=== PATIENT | male | born 1960 | race Caucasian/White ===

== ENCOUNTER 2016-05-20 01:29 | Emergency (ER) | payer OTHER ==
[2016-05-20] MEDS ORDERED: HYDROCODONE/ACETAMINOPHEN 5-325 MG 6 TAB/DSPK PO PRN (04:20)
[2016-05-20] MEDS ORDERED: SILVER SULFADIAZINE 1% CREAM 400 GM TP PRN (04:20)
--- NOTE | 2016-05-20 04:20 | ER Document Report ---
ED Skin Rash/Insect Bite/Abscs - General Chief Complaint: Abscess Stated Complaint: POSSIBLE ABSCESS LEFT FOOT Mode of Arrival: Ambulatory Information source: Patient Notes: Patient is a 55-year-old male who presents to the ER today for callus/ ulcer to his left foot. Patient states he walks all the time as [place] is [place] and that it has been ongoing for years but worsened over the past 2 weeks. He states that he's been putting Neosporin ointment on it which is not helping. He denies any history of diabetes, cellulitis, fever, chills. TRAVEL OUTSIDE OF THE [place] IN LAST 30 DAYS: No - Related Data Allergies/Adverse Reactions: amphetamine [From Adderall] Allergy (Verified 12/01/15 21:04) buprenorphine [From Suboxone] Allergy (Verified 12/01/15 21:04) dextroamphetamine [From Adderall] Allergy (Verified 12/01/15 21:04) naloxone [From Suboxone] Allergy (Verified 12/01/15 21:04) Past Medical History - General Information source: Patient - Social History Smoking Status: Current Every Day Smoker Chew tobacco use (# tins/day): No Frequency of alcohol use: None Drug Abuse: None Family History: DM, Hypertension Patient has suicidal ideation: No Patient has homicidal ideation: No - Past Medical History Cardiac Medical History: Reports: Hx Hypertension Denies: Hx Coronary Artery Disease, Hx Heart Attack Pulmonary Medical History: Denies: Hx Asthma, Hx Bronchitis, Hx COPD, Hx Pneumonia, Hx Tuberculosis Neurological Medical History: Reports: Hx Cerebrovascular Accident. Denies: Hx Seizures Endocrine Medical History: Reports: Hx Diabetes Mellitus Type 2 - borderline Renal/ Medical History: Denies: Hx Peritoneal Dialysis GI Medical History: Reports: Hx Hepatitis - hep C Musculoskeltal Medical History: Denies Hx Arthritis Traumatic Medical History: Reports: Hx Fractures - ribs, right clavicle Infectious Medical History: Reports: Hx Hepatitis - hep C Past Surgical History: Reports: Hx Orthopedic Surgery - lumbar backx2, right clavicle - Immunizations Hx Diphtheria, Pertussis, Tetanus Vaccination: No - unk Review of Systems - Review of Systems Constitutional: No symptoms reported EENT: No symptoms reported Cardiovascular: No symptoms reported Respiratory: No symptoms reported Gastrointestinal: No symptoms reported Genitourinary: No symptoms reported Male Genitourinary: No symptoms reported Musculoskeletal: No symptoms reported Skin: See HPI Hematologic/Lymphatic: No symptoms reported Neurological/Psychological: No symptoms reported Physical Exam - Notes Notes: PHYSICAL EXAMINATION: GENERAL: Well-appearing and in no acute distress. HEAD: Atraumatic, normocephalic. EYES: Pupils equal round and reactive to light, extraocular movements intact, sclera anicteric, conjunctiva are normal. NECK: Normal range of motion, supple without lymphadenopathy LUNGS: CTAB and equal. No wheezes rales or rhonchi. HEART: Regular rate and rhythm without murmurs EXTREMITIES: Normal range of motion, no pitting edema. No cyanosis. NEUROLOGICAL: Cranial nerves grossly intact. Normal sensory/motor exams. PSYCH: Normal mood, normal affect. SKIN: Warm, Dry, normal turgor, 1 cm in diameter callus with dried blood to the plantar surface of the left foot, tender to palpation, no purulence, fluctuance. Course - Re-evaluation Re-evalutation: 05/20/16 04:19 Patient is a nondiabetic with a bleeding callus. I did advise patient to soak in hot Epsom salt water and use a pumice stone for callus, but will send him home with some prescription ointment from here to also help. Discharge - Discharge Clinical Impression: Callus of foot Condition: Stable Disposition: HOME, SELF-CARE Additional Instructions: Return immediately for any new or worsening symptoms. Follow up with primary care provider, call tomorrow to make followup appointment. Forms: Return to Work
== END 2016-05-20 04:59 | disposition home or self-care (01) ==
LOC: ER 01:29
DX: L84 Corns and callosities (principal); L02.612 Cutaneous abscess of left foot; F17.210 Nicotine dependence, cigarettes, uncomplicated
CPT/HCPCS: 99282; J3490

== ENCOUNTER 2017-01-10 21:18 | Emergency (ER) | payer SELFPAY ==
--- NOTE | 2017-01-11 01:21 | ER Document Report ---
ED Skin Rash/Insect Bite/Abscs - General Chief Complaint: Skin Problem Stated Complaint: SKIN PROBLEM AND POSSIBLE DOG BITE Time Seen by Provider: 01/11/17 01:10 Notes: Patient is a 56-year-old male that comes emergency department with multiple skin problems. He states he has an itchy rash over his arms which has been worsening for several days, he was also bitten by a dog on his right forearm 3 days ago, he states it was a pit bull, it was his neighbors, he states that the dog is vaccinated. He states he thinks the wound is doing well. He also has a foot ulcer on his left plantar surface under the great toe, states that his foot has gotten hot and more painful. He denies fevers or chills, denies vomiting. He denies history of diabetes. He states his tetanus is up-to-date within 5 years. Past medical history of hepatitis C, TIA. He takes no daily medications, does not have primary care. TRAVEL OUTSIDE OF THE [place] IN LAST 30 DAYS: No - Related Data Allergies/Adverse Reactions: amphetamine [From Adderall] Allergy (Verified 12/01/15 21:04) buprenorphine [From Suboxone] Allergy (Verified 12/01/15 21:04) dextroamphetamine [From Adderall] Allergy (Verified 12/01/15 21:04) naloxone [From Suboxone] Allergy (Verified 12/01/15 21:04) Past Medical History - General Information source: Patient - Social History Smoking Status: Former Smoker Drug Abuse: None Lives with: Alone Family History: DM, Hypertension Patient has suicidal ideation: No Patient has homicidal ideation: No - Past Medical History Cardiac Medical History: Reports: Hx Hypertension Denies: Hx Coronary Artery Disease, Hx Heart Attack Pulmonary Medical History: Denies: Hx Asthma, Hx Bronchitis, Hx COPD, Hx Pneumonia, Hx Tuberculosis Neurological Medical History: Reports: Hx Cerebrovascular Accident. Denies: Hx Seizures Endocrine Medical History: Reports: Hx Diabetes Mellitus Type 2 - borderline Renal/ Medical History: Denies: Hx Peritoneal Dialysis GI Medical History: Reports: Hx Hepatitis - hep C Musculoskeltal Medical History: Denies Hx Arthritis Traumatic Medical History: Reports: Hx Fractures - ribs, right clavicle Infectious Medical History: Reports: Hx Hepatitis - hep C Past Surgical History: Reports: Hx Orthopedic Surgery - lumbar backx2, right clavicle - Immunizations Hx Diphtheria, Pertussis, Tetanus Vaccination: No - unk Review of Systems - Review of Systems Constitutional: No symptoms reported EENT: No symptoms reported Cardiovascular: No symptoms reported Respiratory: No symptoms reported Gastrointestinal: No symptoms reported Genitourinary: No symptoms reported Male Genitourinary: No symptoms reported Musculoskeletal: See HPI Skin: See HPI Hematologic/Lymphatic: No symptoms reported Neurological/Psychological: No symptoms reported Physical Exam - Vital signs Vitals: Temp Pulse Resp BP Pulse Ox 98.6 F 86 17 157/79 H 100 01/10/17 21:44 01/10/17 21:44 01/10/17 21:44 01/10/17 21:44 01/10/17 21:44 Interpretation: Normal - General General appearance: Appears well, Alert - HEENT Head: Normocephalic, Atraumatic Eyes: Normal Pupils: PERRL - Respiratory Respiratory status: No respiratory distress Chest status: Nontender Breath sounds: Normal Chest palpation: Normal - Cardiovascular Rhythm: Regular Heart sounds: Normal auscultation Murmur: No - Abdominal Inspection: Normal Distension: No distension Bowel sounds: Normal Tenderness: Nontender Organomegaly: No organomegaly - Back Back: Normal, Nontender - Extremities General upper extremity: Other - Right forearm has a 3 cm horizontal wound which has almost completely healed, no significant erythema or tenderness, no drainage or bleeding. Normal distal neurovascular exam, normal range of motion at the elbow, wrist, hand. General lower extremity: Other - Plantar surface underneath the great toe of the left foot with a wound ulcer which is full-thickness and almost down to muscle although not down to bone. Area is not significantly tender although there is some mild surrounding erythema and warmth to the foot. No discolored drainage, small amount of clear drainage. - Neurological Neuro grossly intact: Yes Cognition: Normal Orientation: AAOx4 [place] Coma Scale Eye Opening: Spontaneous Raj Coma Scale Verbal: Oriented Raj Coma Scale Motor: Obeys Commands [place] Coma Scale Total: 15 Speech: Normal Motor strength normal: LUE, RUE, LLE, RLE Sensory: Normal - Psychological Associated symptoms: Normal affect, Normal mood - Skin Skin Temperature: Warm Skin Moisture: Dry Skin Color: Normal Skin irregularity: other - Excoriated rash over both arms with maculopapular appearance, no vesicles currently, no bulla, no induration or fluctuance. Course - Re-evaluation Re-evalutation: CBC, chemistry generally unremarkable. No leukocytosis, no evidence of diabetes. Vital signs unremarkable with no hypotension, tachycardia, or fever. Borderline cellulitis of the left foot ulcer although the wound actually looks pretty good with no foul smell, discolored drainage, or significant tenderness. Has some mild erythema and warmth to the area. Provided with crutches and postop shoe after performing cleaning and dressing over the area. Patient will need wound care for this, he was referred to this. Patient with a rash over his arms mainly which is dried in several locations, has erythematous papules which are excoriated, patient complaining it is very itchy. Has an eczema-like appearance. No evidence of significant cellulitis or necrotizing fasciitis. Given Solu-Medrol, placing on prednisone, Benadryl for this. Patient was placed on Keflex for borderline cellulitis of the foot. I discussed with patient, he does not have primary care, he does not have insurance. Consult was placed for follow-up for the patient to have attempts to meet his needs. I discussed in detail any worsening symptoms that he needs to return for, patient states he will return if he worsens in any way. He states understanding and agreement with plan. He states he drove here and he has frequent contact with his son. - Vital Signs Vital signs: Temp Pulse Resp BP Pulse Ox 98.2 F 83 18 143/91 H 100 01/11/17 04:23 01/11/17 04:23 01/11/17 04:23 01/11/17 04:23 01/11/17 04:23 - Laboratory Result Diagrams: 01/11/17 01:58 01/11/17 01:58 Laboratory results interpreted by me: 01/11/17 01/11/17 01:58 01:58 Hgb 13.1 L RDW 14.7 H Plt Count 118 L Eosinophils % 8.2 H Potassium 3.4 L Discharge - Discharge Clinical Impression: Skin rash Foot ulcer, left Qualifiers: Non-pressure ulcer stage: unspecified non-pressure ulcer stage Qualified Code(s ): L97.529 - Non-pressure chronic ulcer of other part of left foot with unspecified severity Cellulitis Qualifiers: Site of cellulitis: extremity Site of cellulitis of extremity: lower extremity Laterality: left Qualified Code(s): L03.116 - Cellulitis of left lower limb Condition: Stable Disposition: HOME, SELF-CARE Additional Instructions: Your rash is consistent with an eczema type rash. Take the prednisone and Benadryl as prescribed. Avoid scratching, if you do break the skin clean the area and apply a topical antibiotic to the area. Keep the foot clean, take the Keflex antibiotic as prescribed, use the crutches if needed. Follow-up with the wound clinic (see below). We have a case packer and sealer consult placed, they will be contacting you to help you obtain care. Return to emergency department if you worsen in any way including develop fever , vomiting, spreading rash, foul smell or discolored drainage from your foot, or any other concerning symptoms. [facility] in [place] is now accepting patients. Call for an appointment today at . Prescriptions: Cephalexin Monohydrate [Keflex 500 mg Capsule] 500 mg PO QID #28 capsule Diphenhydramine HCl [Benadryl] 25 mg PO Q6H PRN #24 capsule PRN Reason: Prednisone [Deltasone 10 mg Tablet] 10 mg PO ASDIR PRN #21 tablet PRN Reason:
[2017-01-11 02:14] LABS: ABSOLUTE EOSINOPHILS # (AUTO) 0.4 10^3/uL (0.0-0.6); ABSOLUTE MONOCYTES (AUTO) 0.4 10^3/uL (0.1-1.4); BASOPHILS % (AUTO) 0.9 % (0-2); EOSINOPHILS % (AUTO) 8.2 % (0-6); HEMOGLOBIN 13.1 g/dL (13.5-17.0); HGB HCT DIFFERENCE 1.3; LYMPHOCYTES % (AUTO) 19.6 % (13-45); MEAN CORPUSCULAR HEMOGLOBIN 29.2 pg (27.0-33.4); MEAN CORPUSCULAR HGB CONC 34.4 g/dL (32.0-36.0); MEAN CORPUSCULAR VOLUME 85 fl (80-97); MONOCYTES % (AUTO) 9.1 % (3-13); RED BLOOD COUNT 4.48 10^6/uL (4.35-5.55); RED CELL DISTRIBUTION WIDTH 14.7 % (11.5-14.0); SEGMENTED NEUTROPHILS % (AUTO) 62.2 % (42-78); WHITE BLOOD COUNT 4.9 10^3/uL (4.0-10.5)
[2017-01-11 02:23] LABS: ANION GAP 9 (5-19); BLOOD UREA NITROGEN 11 mg/dL (7-20); CARBON DIOXIDE 27 mmol/L (22-30); CHLORIDE 106 mmol/L (98-107); CREATININE RESULT 0.61 mg/dL (0.52-1.25); GLUCOSE 107 mg/dL (75-110); POTASSIUM 3.4 mmol/L (3.6-5.0); SODIUM 142.4 mmol/L (137-145)
[2017-01-11] MEDS ORDERED: METHYLPREDNISOLONE INJ 125 MG/2 ML SDV IV ONE (02:38)
[2017-01-11] MEDS ORDERED: CEPHALEXIN 500 MG CAPSULE PO ONE (02:39)
[2017-01-11 04:32] VITALS: BP 143/91
== END 2017-01-11 04:40 | disposition home or self-care (01) ==
LOC: ER 21:18
DX: L97.529 Non-pressure chronic ulcer of other part of left foot with unspecified severity (principal); L03.116 Cellulitis of left lower limb; R21 Rash and other nonspecific skin eruption; S51.851A Open bite of right forearm, initial encounter; W54.0XXA Bitten by dog, initial encounter; Z87.891 Personal history of nicotine dependence
CPT/HCPCS: 99283; 96374; 36415; 85025; 80048; J2930

== ENCOUNTER 2017-02-04 16:08 | Emergency (ER) | payer SELFPAY ==
[2017-02-04 16:19] VITALS: BP 151/79
--- NOTE | 2017-02-04 16:47 | ER Document Report ---
ED Medical Screen (RME) - General Chief Complaint: Foot Pain Stated Complaint: FOOT INJURY Time Seen by Provider: 02/04/17 16:37 Notes: Patient was referred to the emergency room for evaluation of sore to the bottom of left foot, and redness and swelling which extends to the left knee. Patient has no significant medical history except borderline DM. states he just got off Suboxone about 6 weeks ago. Has had back surgery in the past. I have greeted and performed a rapid initial assessment of this patient. A comprehensive ED assessment and evaluation of the patient, analysis of test results and completion of the medical decision making process will be conducted by additional ED providers. TRAVEL OUTSIDE OF THE [place] IN LAST 30 DAYS: No - Related Data Allergies/Adverse Reactions: No Known Allergies Allergy (Verified 02/04/17 16:19) Past Medical History - Social History Frequency of alcohol use: None Drug Abuse: None - Past Medical History Cardiac Medical History: Reports: Hx Hypertension Denies: Hx Coronary Artery Disease, Hx Heart Attack Pulmonary Medical History: Denies: Hx Asthma, Hx Bronchitis, Hx COPD, Hx Pneumonia, Hx Tuberculosis Neurological Medical History: Reports: Hx Cerebrovascular Accident. Denies: Hx Seizures Endocrine Medical History: Reports: Hx Diabetes Mellitus Type 2 - borderline Renal/ Medical History: Denies: Hx Peritoneal Dialysis GI Medical History: Reports: Hx Hepatitis - hep C Musculoskeltal Medical History: Denies Hx Arthritis Traumatic Medical History: Reports: Hx Fractures - ribs, right clavicle Infectious Medical History: Reports: Hx Hepatitis - hep C Past Surgical History: Reports: Hx Orthopedic Surgery - lumbar backx2, right clavicle - Immunizations Hx Diphtheria, Pertussis, Tetanus Vaccination: No - unk Physical Exam - Vital signs Vitals: Temp Pulse Resp BP Pulse Ox 98.9 F 86 16 151/79 H 100 02/04/17 16:17 02/04/17 16:17 02/04/17 16:17 02/04/17 16:17 02/04/17 16:17 Course - Vital Signs Vital signs: Temp Pulse Resp BP Pulse Ox 98.9 F 86 16 151/79 H 100 02/04/17 16:17 02/04/17 16:17 02/04/17 16:17 02/04/17 16:17 02/04/17 16:17
[2017-02-04 17:42] LABS: ABSOLUTE EOSINOPHILS # (AUTO) 0.3 10^3/uL (0.0-0.6); ABSOLUTE LYMPHOCYTES (AUTO) 0.6 10^3/uL (0.5-4.7); ABSOLUTE MONOCYTES (AUTO) 0.3 10^3/uL (0.1-1.4); BASOPHILS % (AUTO) 0.8 % (0-2); EOSINOPHILS % (AUTO) 8.7 % (0-6); HEMOGLOBIN 12.1 g/dL (13.5-17.0); HGB HCT DIFFERENCE 1.3; MEAN CORPUSCULAR HEMOGLOBIN 29.2 pg (27.0-33.4); MEAN CORPUSCULAR HGB CONC 34.4 g/dL (32.0-36.0); MEAN CORPUSCULAR VOLUME 85 fl (80-97); MONOCYTES % (AUTO) 10.2 % (3-13); RED BLOOD COUNT 4.13 10^6/uL (4.35-5.55); RED CELL DISTRIBUTION WIDTH 14.5 % (11.5-14.0); SEGMENTED NEUTROPHILS % (AUTO) 61.3 % (42-78); WHITE BLOOD COUNT 3.3 10^3/uL (4.0-10.5)
--- NOTE | 2017-02-04 17:53 | RADIOLOGY REPORT (SQ) ---
EXAM DESCRIPTION: FOOT LEFT COMPLETE COMPLETED DATE/TIME: 02/04/2017 5:41 pm REASON FOR STUDY: foot pain, ulcer COMPARISON: None. NUMBER OF VIEWS: Three views. TECHNIQUE: AP, lateral and oblique radiographic images acquired of the left foot. LIMITATIONS: None. FINDINGS: MINERALIZATION: Normal. BONES: No acute fracture or dislocation. No worrisome bone lesions. JOINTS: No effusions. SOFT TISSUES: Soft tissue defect involving the plantar aspect of the forefoot compatible with history of ulcer. No radiopaque foreign body or subcutaneous gas. OTHER: No other significant finding. IMPRESSION: SOFT TISSUE ULCER WITHOUT DEFINITE OSSEOUS INVOLVEMENT. TECHNICAL DOCUMENTATION: JOB ID: [id number] [employer]- All Rights Reserved
--- NOTE | 2017-02-04 18:11 | ER Document Report ---
ED Extremity Problem, Lower - General Chief Complaint: Foot Pain Stated Complaint: FOOT INJURY Time Seen by Provider: 02/04/17 16:37 Mode of Arrival: Ambulatory Information source: Patient TRAVEL OUTSIDE OF THE [place] IN LAST 30 DAYS: No - HPI Patient complains to provider of: Pain, Swelling Location: Foot Occurred: Last week Onset/Duration: Persistent, Worse Quality of pain: Achy Severity: Moderate Pain Level: 3 Recent injury: No Associated symptoms: Painful ambulation Exacerbated by: Movement, Walking Relieved by: Nothing Notes: 56-year-old male presents to the emergency room complaining of worsening chronic ulceration to the plantar surface of his left foot, states it has been there for approximately 2 years and started as a callus that developed into an ulceration, patient was seen in this department on 01/10/2017 and was started on antibiotics, he has been unable to follow-up with the wound care clinic, was seen at the [facility] today and advised to come to the ER for evaluation - Related Data Allergies/Adverse Reactions: No Known Allergies Allergy (Verified 02/04/17 16:19) Past Medical History - General Information source: Patient - Social History Smoking Status: Current Some Day Smoker Frequency of alcohol use: None Drug Abuse: None Family History: DM, Hypertension Patient has suicidal ideation: No Patient has homicidal ideation: No - Past Medical History Cardiac Medical History: Reports: Hx Hypertension Denies: Hx Coronary Artery Disease, Hx Heart Attack Pulmonary Medical History: Denies: Hx Asthma, Hx Bronchitis, Hx COPD, Hx Pneumonia, Hx Tuberculosis Neurological Medical History: Reports: Hx Cerebrovascular Accident. Denies: Hx Seizures Endocrine Medical History: Reports: Hx Diabetes Mellitus Type 2 - borderline Renal/ Medical History: Denies: Hx Peritoneal Dialysis GI Medical History: Reports: Hx Hepatitis - hep C Musculoskeltal Medical History: Denies Hx Arthritis Traumatic Medical History: Reports: Hx Fractures - ribs, right clavicle Infectious Medical History: Reports: Hx Hepatitis - hep C Past Surgical History: Reports: Hx Orthopedic Surgery - lumbar backx2, right clavicle - Immunizations Hx Diphtheria, Pertussis, Tetanus Vaccination: No - unk Review of Systems - Review of Systems Constitutional: No symptoms reported EENT: No symptoms reported Cardiovascular: No symptoms reported Respiratory: No symptoms reported Gastrointestinal: No symptoms reported Genitourinary: No symptoms reported Male Genitourinary: No symptoms reported Musculoskeletal: No symptoms reported Skin: See HPI Hematologic/Lymphatic: No symptoms reported Neurological/Psychological: No symptoms reported -: Yes All other systems reviewed and negative Physical Exam - Vital signs Vitals: Temp Pulse Resp BP Pulse Ox 98.9 F 86 16 151/79 H 100 02/04/17 16:17 02/04/17 16:17 02/04/17 16:17 02/04/17 16:17 02/04/17 16:17 Interpretation: Normal - General General appearance: Appears well, Alert - HEENT Head: Normocephalic, Atraumatic Eyes: Normal Pupils: PERRL - Respiratory Respiratory status: No respiratory distress - Cardiovascular Rhythm: Regular - Abdominal Inspection: Normal Distension: No distension Bowel sounds: Normal Tenderness: Nontender Organomegaly: No organomegaly - Back Back: Normal, Nontender - Extremities General upper extremity: Normal inspection, Nontender, Normal color, Normal ROM , Normal temperature General lower extremity: No: Gaviota's sign Foot: Other - On the plantar surface of the left foot TP there is a 2 cm ulceration which is approximately 2-3 cm deep, with callused tissue surrounding , small amount of serous drainage, no purulent drainage, there is mild surrounding tenderness on the foot with mild erythema and swelling as well, distal sensation and motor is intact with 2+ DP pulses - Neurological Neuro grossly intact: Yes Cognition: Normal Orientation: AAOx4 Raj Coma Scale Eye Opening: Spontaneous [place] Coma Scale Verbal: Oriented Raj Coma Scale Motor: Obeys Commands [place] Coma Scale Total: 15 Speech: Normal Motor strength normal: LUE, RUE, LLE, RLE Sensory: Normal - Psychological Associated symptoms: Normal affect, Normal mood - Skin Skin Temperature: Warm Skin Moisture: Dry Skin Color: Normal Course - Re-evaluation Re-evalutation: 02/04/17 21:00 Patient with chronic nonhealing ulceration to the plantar surface of the left foot, and he was started on clindamycin, provided with pain medication and a referral was faxed over to the wound care clinic for patient follow-up, patient acknowledges understanding and agreement with this plan - Vital Signs Vital signs: Temp Pulse Resp BP Pulse Ox 98.9 F 86 16 151/79 H 100 02/04/17 16:17 02/04/17 16:17 02/04/17 16:17 02/04/17 16:17 02/04/17 16:17 - Laboratory Result Diagrams: 02/04/17 17:15 02/04/17 17:15 Laboratory results interpreted by me: 02/04/17 02/04/17 17:15 17:15 WBC 3.3 L RBC 4.13 L Hgb 12.1 L Hct 35.0 L RDW 14.5 H Plt Count 135 L Eosinophils % 8.7 H Creatinine 0.51 L AST 63 H Albumin 3.1 L - Diagnostic Test Radiology reviewed: Image reviewed, Reports reviewed Discharge - Discharge Clinical Impression: Plantar ulcer Qualifiers: Laterality: left Non-pressure ulcer stage: unspecified non-pressure ulcer stage Qualified Code(s): L97.529 - Non-pressure chronic ulcer of other part of left foot with unspecified severity Condition: Stable Disposition: HOME, SELF-CARE Instructions: Foot or Leg Ulcer ([facility]) Additional Instructions: Follow-up with the wound care clinic within the next week. Return if symptoms worsen. Prescriptions: Clindamycin HCl [Cleocin 150 mg Capsule] 450 mg PO Q6 10 Days capsule Hydrocodone/Acetaminophen [Hydrocodon-Acetaminophen 5-325] 1 each PO Q6 #20 tablet
[2017-02-04 18:33] LABS: ALANINE AMINOTRANSFERASE 45 U/L (21-72); ALBUMIN 3.1 g/dL (3.5-5.0); ALKALINE PHOSPHATASE 113 U/L (38-126); ANION GAP 7 (5-19); ASPARTATE AMINO TRANSFERASE 63 U/L (17-59); BILIRUBIN,DIRECT 0.4 mg/dL (0.0-0.4); BILIRUBIN,TOTAL 0.5 mg/dL (0.2-1.3); BLOOD UREA NITROGEN 9 mg/dL (7-20); CALCIUM 9.1 mg/dL (8.4-10.2); CARBON DIOXIDE 29 mmol/L (22-30); CHLORIDE 104 mmol/L (98-107); CREATININE RESULT 0.51 mg/dL (0.52-1.25); GLUCOSE 90 mg/dL (75-110); POTASSIUM 4.1 mmol/L (3.6-5.0); TOTAL PROTEIN 6.4 g/dL (6.3-8.2)
== END 2017-02-04 18:31 | disposition home or self-care (01) ==
LOC: ER 16:08
DX: L97.529 Non-pressure chronic ulcer of other part of left foot with unspecified severity (principal); R73.03 Prediabetes; I10 Essential (primary) hypertension; Z86.73 Personal history of transient ischemic attack (TIA), and cerebral infarction without residual deficits; Z86.19 Personal history of other infectious and parasitic diseases
CPT/HCPCS: 36415; 80053; 83605; 85025; 87040; 99283

== ENCOUNTER → 2017-03-08 | Outpatient (CLI) | payer OTHER ==
--- NOTE | 2017-03-08 11:34 | XCELERA REPORT ---
[address] [address] Lower Extremity Arterial Evaluation Name: MIRTA AUGUST Age: 56 yrs Gender: Male : 1960 Patient Status: Outpatient Patient Location: Study Date: 03/08/2017 09:18 AM Procedure: A color flow and duplex scan of the lower extremity arteries was performed bilaterally with velocity and waveform anaylsis. Ankle brachial indicies performed. Reason For Study: ULCER Ordering Physician: SALINAS AGUIRRE Performed By: Mary Grace Arrington Measurements and Calculations Right Left RANCH SUPERVISOR PSV 127.3 168.5 cm/sec Prox PFA PSV 91.0 -68.5 cm/sec Prox SFA PSV 139.1 122.2 cm/sec Mid SFA PSV -107.5 -132.7 cm/sec Dist SFA PSV -76.2 -101.5 cm/sec Prox Pop A PSV 79.8 109.7 cm/sec Dist YOUNG PSV 44.5 113.6 cm/sec Dist SHOWROOM SALES CONSULTANT PSV 69.1 94.7 cm/sec Scott Pedis PSV 100.4 100.9 cm/sec Right Side Arterial Evaluation Normal velocity and triphasic waveforms noted from the Common Femoral artery to the infregeniculate vessels. 0% stenosis . Ankle Brachial index is 1.2. Left Side Arterial Evaluation Normal velocity and triphasic waveforms noted from the Common Femoral artery to the anterior Tibial . 0-19% stenosis at the Anterior Tibial artery. Ankle Brachial index is 1.2. Interpretation Summary No hemodynamically significant lesions in the right lower extremity only, on duplex imaging, at rest. Mild hemodynamically significant lesions in the left lower extremity only, on duplex imaging, at rest. : SALINAS AGUIRRE > [place] Aguirre
== END ==
LOC: SP 09:02
PROVIDERS: ATTEND Surgery
DX: L97.522 Non-pressure chronic ulcer of other part of left foot with fat layer exposed (principal)
CPT/HCPCS: 93925

== ENCOUNTER → 2017-03-08 | Outpatient (CLI) | payer OTHER ==
[2017-03-08 10:59] LABS: ABSOLUTE EOSINOPHILS # (AUTO) 0.2 10^3/uL (0.0-0.6); ABSOLUTE LYMPHOCYTES (AUTO) 0.8 10^3/uL (0.5-4.7); ABSOLUTE MONOCYTES (AUTO) 0.3 10^3/uL (0.1-1.4); ABSOLUTE NEUT (AUTO) 2.9 10^3/uL (1.7-8.2); BASOPHILS % (AUTO) 0.6 % (0-2); EOSINOPHILS % (AUTO) 5.6 % (0-6); HEMATOCRIT 38.5 % (37.9-51.0); HEMOGLOBIN 12.9 g/dL (13.5-17.0); HGB HCT DIFFERENCE 0.2; LYMPHOCYTES % (AUTO) 18.3 % (13-45); MEAN CORPUSCULAR HEMOGLOBIN 28.5 pg (27.0-33.4); MEAN CORPUSCULAR HGB CONC 33.6 g/dL (32.0-36.0); MEAN CORPUSCULAR VOLUME 85 fl (80-97); MONOCYTES % (AUTO) 6.9 % (3-13); RED BLOOD COUNT 4.53 10^6/uL (4.35-5.55); RED CELL DISTRIBUTION WIDTH 14.9 % (11.5-14.0); SEGMENTED NEUTROPHILS % (AUTO) 68.6 % (42-78); WHITE BLOOD COUNT 4.3 10^3/uL (4.0-10.5)
[2017-03-08 11:27] LABS: ALANINE AMINOTRANSFERASE 50 U/L (21-72); ALBUMIN 3.6 g/dL (3.5-5.0); ALKALINE PHOSPHATASE 108 U/L (38-126); ANION GAP 11 (5-19); ASPARTATE AMINO TRANSFERASE 86 U/L (17-59); BILIRUBIN,DIRECT 0.4 mg/dL (0.0-0.4); BILIRUBIN,TOTAL 0.7 mg/dL (0.2-1.3); BLOOD UREA NITROGEN 8 mg/dL (7-20); C-REACTIVE PROTEIN 8.2 mg/L (<10.0); CALCIUM 9.4 mg/dL (8.4-10.2); CARBON DIOXIDE 30 mmol/L (22-30); CHLORIDE 103 mmol/L (98-107); CREATININE RESULT 0.57 mg/dL (0.52-1.25); GLUCOSE 83 mg/dL (75-110); SODIUM 144.2 mmol/L (137-145); TOTAL PROTEIN 7.2 g/dL (6.3-8.2)
[2017-03-08 11:48] LABS: ERYTHROCYTE SEDIMENTATION RATE 23 mm/hr (0-20)
--- NOTE | 2017-03-08 12:30 | RADIOLOGY REPORT (SQ) ---
EXAM DESCRIPTION: FOOT LEFT COMPLETE COMPLETED DATE/TIME: 03/08/2017 10:34 am REASON FOR STUDY: NON-PRS CHRONIC ULCER OTH PRT LEFT FOOT W FAT LAYER EXPOSED L97.522 NON-PRS CHRON IC ULCER OTH PRT LEFT FOOT W FAT LAYER COMPARISON: 02/04/2017 NUMBER OF VIEWS: Three views. TECHNIQUE: AP, lateral and oblique radiographic images acquired of the left foot. LIMITATIONS: None. FINDINGS: MINERALIZATION: Normal. BONES: No fracture or dislocation. No evidence of osteomyelitis. JOINTS: No effusions. SOFT TISSUES: No soft tissue swelling. No foreign body. OTHER: No other significant finding. IMPRESSION: There is no evidence of osteomyelitis. TECHNICAL DOCUMENTATION: JOB ID: [id number] [employer]- All Rights Reserved
== END ==
LOC: WC 10:11
PROVIDERS: ATTEND Surgery
DX: L97.522 Non-pressure chronic ulcer of other part of left foot with fat layer exposed (principal)
CPT/HCPCS: 36415; 80053; 85025; 85652; 86140

== ENCOUNTER 2017-06-23 15:40 | Emergency (ER) | payer OTHER ==
--- NOTE | 2017-06-23 16:23 | ER Document Report ---
ED Medical Screen (RME) - General Chief Complaint: Leg Swelling Stated Complaint: LEFT LEG PAIN Time Seen by Provider: 06/23/17 15:59 Mode of Arrival: Wheelchair Information source: Patient Notes: 56-year-old male history of lower extremity edema which worsened over the past few days on the left with chronic ulceration of the foot presents with complaints of worsening swelling patient denies any significant shortness of breath difficulty breathing I have greeted and performed a rapid initial assessment of this patient. A comprehensive ED assessment and evaluation of the patient, analysis of test results and completion of the medical decision making process will be conducted by additional ED providers. PHYSICAL EXAMINATION: GENERAL: Well-appearing, well-nourished and in no acute distress. HEAD: Atraumatic, normocephalic. EYES: Pupils equal round extraocular movements intact, conjunctiva are normal. ENT: Nares patent NECK: Normal range of motion LUNGS: No respiratory distress Musculoskeletal: +3 pitting edema left lower extremity NEUROLOGICAL: Normal speech, normal gait. PSYCH: Normal mood, normal affect. SKIN: Ulceration base foot TRAVEL OUTSIDE OF THE [place] IN LAST 30 DAYS: No - Related Data Allergies/Adverse Reactions: No Known Allergies Allergy (Verified 02/04/17 16:19) Past Medical History - Social History Frequency of alcohol use: None Drug Abuse: None - Past Medical History Cardiac Medical History: Reports: Hx Hypertension Denies: Hx Coronary Artery Disease, Hx Heart Attack Pulmonary Medical History: Denies: Hx Asthma, Hx Bronchitis, Hx COPD, Hx Pneumonia, Hx Tuberculosis Neurological Medical History: Reports: Hx Cerebrovascular Accident. Denies: Hx Seizures Endocrine Medical History: Reports: Hx Diabetes Mellitus Type 2 - borderline Renal/ Medical History: Denies: Hx Peritoneal Dialysis GI Medical History: Reports: Hx Hepatitis - hep C Musculoskeltal Medical History: Denies Hx Arthritis Traumatic Medical History: Reports: Hx Fractures - ribs, right clavicle Infectious Medical History: Reports: Hx Hepatitis - hep C Past Surgical History: Reports: Hx Orthopedic Surgery - lumbar backx2, right clavicle - Immunizations Hx Diphtheria, Pertussis, Tetanus Vaccination: No - unk Physical Exam - Vital signs Vitals: Temp Pulse Resp BP Pulse Ox 99.6 F 112 H 16 159/85 H 99 06/23/17 15:47 06/23/17 15:47 06/23/17 15:47 06/23/17 15:47 06/23/17 15:47 Course - Vital Signs Vital signs: Temp Pulse Resp BP Pulse Ox 99.6 F 114 H 22 H 159/85 H 100 06/23/17 15:47 06/23/17 15:58 06/23/17 15:58 06/23/17 15:47 06/23/17 15:58
[2017-06-23 17:21] LABS: ABSOLUTE EOSINOPHILS # (AUTO) 0.1 10^3/uL (0.0-0.6); ABSOLUTE LYMPHOCYTES (AUTO) 0.8 10^3/uL (0.5-4.7); ABSOLUTE MONOCYTES (AUTO) 0.5 10^3/uL (0.1-1.4); ABSOLUTE NEUT (AUTO) 3.7 10^3/uL (1.7-8.2); BASOPHILS % (AUTO) 0.5 % (0-2); EOSINOPHILS % (AUTO) 2.1 % (0-6); HEMATOCRIT 32.9 % (37.9-51.0); HEMOGLOBIN 10.9 g/dL (13.5-17.0); LYMPHOCYTES % (AUTO) 16.3 % (13-45); MEAN CORPUSCULAR HEMOGLOBIN 26.3 pg (27.0-33.4); MEAN CORPUSCULAR HGB CONC 33.1 g/dL (32.0-36.0); MEAN CORPUSCULAR VOLUME 80 fl (80-97); MONOCYTES % (AUTO) 8.9 % (3-13); PLATELET COUNT 167 10^3/uL (150-450); RED BLOOD COUNT 4.14 10^6/uL (4.35-5.55); RED CELL DISTRIBUTION WIDTH 15.9 % (11.5-14.0); SEGMENTED NEUTROPHILS % (AUTO) 72.2 % (42-78); TOTAL CELLS COUNTED % (AUTO) 100 %; WHITE BLOOD COUNT 5.1 10^3/uL (4.0-10.5)
[2017-06-23 17:30] LABS: ALANINE AMINOTRANSFERASE 53 U/L (21-72); ALBUMIN 3.1 g/dL (3.5-5.0); ALKALINE PHOSPHATASE 141 U/L (38-126); ANION GAP 8 (5-19); ASPARTATE AMINO TRANSFERASE 113 U/L (17-59); BILIRUBIN,DIRECT 0.5 mg/dL (0.0-0.4); BILIRUBIN,TOTAL 0.9 mg/dL (0.2-1.3); BLOOD UREA NITROGEN 7 mg/dL (7-20); CALCIUM 8.3 mg/dL (8.4-10.2); CARBON DIOXIDE 25 mmol/L (22-30); CHLORIDE 103 mmol/L (98-107); GLUCOSE 91 mg/dL (75-110); POTASSIUM 3.4 mmol/L (3.6-5.0); SODIUM 135.7 mmol/L (137-145); TOTAL PROTEIN 6.4 g/dL (6.3-8.2)
--- NOTE | 2017-06-23 17:41 | RADIOLOGY REPORT (SQ) ---
EXAM DESCRIPTION: CHEST PA/LAT COMPLETED DATE/TIME: 06/23/2017 5:28 pm REASON FOR STUDY: left leg edema COMPARISON: 01/28/2014. EXAM PARAMETERS: NUMBER OF VIEWS: two views TECHNIQUE: Digital Frontal and Lateral radiographic views of the chest acquired. RADIATION DOSE: NA LIMITATIONS: none FINDINGS: LUNGS AND PLEURA: No opacities, masses or pneumothorax. No pleural effusion. MEDIASTINUM AND HILAR STRUCTURES: No masses or contour abnormalities. HEART AND VASCULAR STRUCTURES: Heart normal size. No evidence for failure. BONES: No acute findings. HARDWARE: Hardware in the right clavicle. OTHER: No other significant finding. IMPRESSION: NO SIGNIFICANT RADIOGRAPHIC FINDING IN THE CHEST. TECHNICAL DOCUMENTATION: JOB ID: [id number] [employer]- All Rights Reserved Reading location - IP/workstation name: [email or web address]
--- NOTE | 2017-06-23 18:02 | RADIOLOGY REPORT (SQ) ---
EXAM DESCRIPTION: VENOUS UNILATERAL LOWER COMPLETED DATE/TIME: 06/23/2017 5:54 pm REASON FOR STUDY: left leg edema COMPARISON: None. TECHNIQUE: Dynamic and static mendez scale and color images acquired of the left leg venous system. Se lected spectral images acquired with additional compression and augmentation maneuvers. The contralat eral common femoral vein and saphenofemoral junction were also imaged. Images stored on PACS. LIMITATIONS: None. FINDINGS: COMMON FEMORAL: Normal phasicity, compression and augmentation. No visualized echogenic ma terial on mendez scale. No defects on color images. FEMORAL: Normal compression and augmentation. No visualized echogenic material on mendez scale. No defe cts on color images. POPLITEAL: Normal compression, augmentation. No visualized echogenic material on mendez scale. No defec ts on color images. CALF VESSELS: Normal compression, augmentation. No visualized echogenic material on mendez scale. No de fects on color images. GSV and SSV: Normal compression, augmentation. No visualized echogenic material on mendez scale. No def ects on color images. ANY DEEP VENOUS INSUFFICIENCY: No. ANY EVIDENCE OF POPLITEAL CYST: No. OTHER: No other significant finding. CONTRALATERAL COMMON FEMORAL VEIN AND SAPHENOFEMORAL JUNCTION: Normal phasicity, compression and augmentation. No visualized echogenic material on mendez scale. No de fects on color images. IMPRESSION: NO EVIDENCE DVT OR SVT IN THE LEFT LEG. TECHNICAL DOCUMENTATION: JOB ID: [id number] [employer]- All Rights Reserved Reading location - IP/workstation name: [email or web address]
[2017-06-23 18:35] VITALS: BP 143/73
--- NOTE | 2017-06-23 18:44 | ER Document Report ---
ED Extremity Problem, Lower - General Chief Complaint: Leg Swelling Stated Complaint: LEFT LEG PAIN Time Seen by Provider: 06/23/17 15:59 Mode of Arrival: Wheelchair Information source: Patient Notes: Patient is a 56 year old male who presents to the ER today for lower extremity swelling. Patient states that he has chronic ulcer to the bottom of the left foot, states that a few days ago he started swelling more to the left lower leg. He does state that he has got some swelling to both legs. He denies history of congestive heart failure, kidney disease. He denies any injury, redness, pain to the feet or legs. He denies history of blood clots. TRAVEL OUTSIDE OF THE [place] IN LAST 30 DAYS: No - Related Data Allergies/Adverse Reactions: No Known Allergies Allergy (Verified 02/04/17 16:19) Past Medical History - General Information source: Patient - Social History Smoking Status: Current Every Day Smoker Frequency of alcohol use: None Drug Abuse: None Family History: DM, Hypertension Patient has suicidal ideation: No Patient has homicidal ideation: No - Past Medical History Cardiac Medical History: Reports: Hx Hypertension Denies: Hx Coronary Artery Disease, Hx Heart Attack Pulmonary Medical History: Denies: Hx Asthma, Hx Bronchitis, Hx COPD, Hx Pneumonia, Hx Tuberculosis Neurological Medical History: Reports: Hx Cerebrovascular Accident. Denies: Hx Seizures Endocrine Medical History: Reports: Hx Diabetes Mellitus Type 2 - borderline Renal/ Medical History: Denies: Hx Peritoneal Dialysis GI Medical History: Reports: Hx Hepatitis - hep C Musculoskeltal Medical History: Denies Hx Arthritis Traumatic Medical History: Reports: Hx Fractures - ribs, right clavicle Infectious Medical History: Reports: Hx Hepatitis - hep C Past Surgical History: Reports: Hx Orthopedic Surgery - lumbar backx2, right clavicle - Immunizations Hx Diphtheria, Pertussis, Tetanus Vaccination: No - unk Review of Systems - Review of Systems Constitutional: No symptoms reported EENT: No symptoms reported Cardiovascular: No symptoms reported Respiratory: No symptoms reported Gastrointestinal: No symptoms reported Genitourinary: No symptoms reported Male Genitourinary: No symptoms reported Musculoskeletal: No symptoms reported Skin: See HPI Hematologic/Lymphatic: No symptoms reported Neurological/Psychological: No symptoms reported Physical Exam - Vital signs Vitals: Temp Pulse Resp BP Pulse Ox 99.6 F 112 H 16 159/85 H 99 06/23/17 15:47 06/23/17 15:47 06/23/17 15:47 06/23/17 15:47 06/23/17 15:47 - Notes Notes: PHYSICAL EXAMINATION: GENERAL: Well-appearing and in no acute distress. HEAD: Atraumatic, normocephalic. EYES: Pupils equal round and reactive to light, extraocular movements intact, sclera anicteric, conjunctiva are normal. NECK: Normal range of motion, supple without lymphadenopathy LUNGS: CTAB and equal. No wheezes rales or rhonchi. HEART: Regular rate and rhythm without murmurs EXTREMITIES: Normal range of motion, 3+ pitting edema to the left lower extremity, 2+ pitting edema to the right lower extremity. No cyanosis. NEUROLOGICAL: Cranial nerves grossly intact. Normal sensory/motor exams. PSYCH: Normal mood, normal affect. SKIN: Warm, Dry, normal turgor, healing ulcer to the plantar surface of the left foot, no erythema to leg or foot Course - Re-evaluation Re-evalutation: 06/23/17 18:53 BNP is normal, lab work unremarkable today, chest x-ray without any acute abnormality, left lower extremity is not erythematous, ulcer looks like it is well-healing to the bottom of the foot, nontender to palpation to the leg or foot, will place patient on Lasix - Vital Signs Vital signs: Temp Pulse Resp BP Pulse Ox 99.1 F 98 18 143/73 H 99 06/23/17 18:29 06/23/17 18:29 06/23/17 18:29 06/23/17 18:29 06/23/17 18:29 - Laboratory Result Diagrams: 06/23/17 17:00 06/23/17 17:00 Laboratory results interpreted by me: 06/23/17 06/23/17 17:00 17:00 RBC 4.14 L Hgb 10.9 L Hct 32.9 L MCH 26.3 L RDW 15.9 H Sodium 135.7 L Potassium 3.4 L Calcium 8.3 L Direct Bilirubin 0.5 H AST 113 H Alkaline Phosphatase 141 H Albumin 3.1 L Discharge - Discharge Clinical Impression: Edema, peripheral Condition: Stable Disposition: HOME, SELF-CARE Additional Instructions: Return immediately for any new or worsening symptoms. Follow up with primary care provider, call tomorrow to make followup appointment. Prescriptions: Furosemide [Lasix 20 mg Tablet] 20 mg PO QAM #30 tablet
[2017-06-23] MEDS ORDERED: FUROSEMIDE INJ/PF 20 MG/2 ML SDV IV ONE (18:47)
== END 2017-06-23 19:15 | disposition home or self-care (01) ==
LOC: ER 15:40
DX: M79.89 Other specified soft tissue disorders (principal); F17.200 Nicotine dependence, unspecified, uncomplicated; I10 Essential (primary) hypertension; R73.03 Prediabetes; Z86.19 Personal history of other infectious and parasitic diseases; Z86.73 Personal history of transient ischemic attack (TIA), and cerebral infarction without residual deficits
CPT/HCPCS: 99284; 96374; 36415; 85025; 80053; 83880; 93971; 71046; J1940

== ENCOUNTER 2017-08-07 18:30 | Emergency (ER) | payer MEDICAID, OTHER ==
--- NOTE | 2017-08-07 19:07 | ER Document Report ---
ED Medical Screen (RME) - General Chief Complaint: Abdominal Distention Stated Complaint: LEG PAIN/SHORTNESS OF BREATH Time Seen by Provider: 08/07/17 19:01 Notes: 56-year-old male patient with hepatitis C who failed interferon shots. Complains of right anterior thigh having a small patch in the proximal thigh that was uncomfortable for 4-5 months which has now recently spread up and down the entire thigh with a severe burning discomfort. He also complains of abdominal bloating and has had nausea vomiting diarrhea for 2 days. He does take Suboxone and a blood pressure medication. He has never had ascites by history. I have greeted and performed a rapid initial assessment of this patient. A comprehensive ED assessment and evaluation of the patient, analysis of test results and completion of the medical decision making process will be conducted by additional ED providers. TRAVEL OUTSIDE OF THE [place] IN LAST 30 DAYS: No - Related Data Allergies/Adverse Reactions: No Known Allergies Allergy (Verified 08/07/17 18:59) Past Medical History - Social History Chew tobacco use (# tins/day): No Frequency of alcohol use: None Drug Abuse: None - Past Medical History Cardiac Medical History: Reports: Hx Hypertension Denies: Hx Coronary Artery Disease, Hx Heart Attack Pulmonary Medical History: Denies: Hx Asthma, Hx Bronchitis, Hx COPD, Hx Pneumonia, Hx Tuberculosis Neurological Medical History: Reports: Hx Cerebrovascular Accident. Denies: Hx Seizures Endocrine Medical History: Reports: Hx Diabetes Mellitus Type 2 - borderline Renal/ Medical History: Denies: Hx Peritoneal Dialysis GI Medical History: Reports: Hx Hepatitis - hep C Musculoskeltal Medical History: Denies Hx Arthritis Traumatic Medical History: Reports: Hx Fractures - ribs, right clavicle Infectious Medical History: Reports: Hx Hepatitis - hep C Past Surgical History: Reports: Hx Orthopedic Surgery - lumbar backx2, right clavicle - Immunizations Hx Diphtheria, Pertussis, Tetanus Vaccination: No - unk Physical Exam - Vital signs Vitals: Temp Pulse Resp BP Pulse Ox 98.0 F 111 H 20 159/91 H 98 08/07/17 18:47 08/07/17 18:47 08/07/17 18:47 08/07/17 18:47 08/07/17 18:47 Course - Vital Signs Vital signs: Temp Pulse Resp BP Pulse Ox 98.0 F 111 H 20 159/91 H 98 08/07/17 18:47 04/15/18 18:47 08/07/17 18:47 08/07/17 18:47 08/07/17 18:47
[2017-08-07 20:06] LABS: ABSOLUTE EOSINOPHILS # (AUTO) 0.1 10^3/uL (0.0-0.6); ABSOLUTE LYMPHOCYTES (AUTO) 0.6 10^3/uL (0.5-4.7); ABSOLUTE MONOCYTES (AUTO) 0.4 10^3/uL (0.1-1.4); ABSOLUTE NEUT (AUTO) 2.1 10^3/uL (1.7-8.2); BASOPHILS % (AUTO) 0.4 % (0-2); EOSINOPHILS % (AUTO) 2.6 % (0-6); HEMATOCRIT 35.5 % (37.9-51.0); HEMOGLOBIN 11.6 g/dL (13.5-17.0); LYMPHOCYTES % (AUTO) 19.4 % (13-45); MEAN CORPUSCULAR HEMOGLOBIN 26.6 pg (27.0-33.4); MEAN CORPUSCULAR HGB CONC 32.6 g/dL (32.0-36.0); MEAN CORPUSCULAR VOLUME 82 fl (80-97); MONOCYTES % (AUTO) 11.5 % (3-13); PLATELET COUNT 152 10^3/uL (150-450); RED BLOOD COUNT 4.35 10^6/uL (4.35-5.55); RED CELL DISTRIBUTION WIDTH 18.7 % (11.5-14.0); SEGMENTED NEUTROPHILS % (AUTO) 66.1 % (42-78); TOTAL CELLS COUNTED % (AUTO) 100 %; WHITE BLOOD COUNT 3.2 10^3/uL (4.0-10.5)
--- NOTE | 2017-08-07 20:08 | RADIOLOGY REPORT (SQ) ---
EXAM DESCRIPTION: U/S ABDOMEN LIMITED W/O DOP COMPLETED DATE/TIME: 08/07/2017 7:56 pm REASON FOR STUDY: n,v,d abd distention, liver failure COMPARISON: None. TECHNIQUE: Dynamic and static grayscale images acquired of the abdomen and recorded on PACS. Additio keshawn selected color Doppler and spectral images recorded. LIMITATIONS: None. FINDINGS: PANCREAS: Not visualized LIVER: Heterogeneous. Possible multiple masses. Lobular contour. LIVER VASCULATURE: Hepatofugal flow of the portal vein. GALLBLADDER: Mildly distended. No stones. ULTRASOUND-DETECTED BLOCK'S SIGN: Negative. INTRAHEPATIC DUCTS AND COMMON DUCT: CBD and intrahepatic ducts normal caliber. No filling defects. INFERIOR VENA CAVA: Normal flow. AORTA: Not visualized. RIGHT KIDNEY: No hydronephrosis. 5 cm cysts. 1.6 cm nonobstructive calculus. PERITONEAL AND RIGHT PLEURAL SPACE: Moderate ascites. OTHER: No other significant findings. IMPRESSION: Heterogeneous liver with lobular contour but there appear to be multiple masses as well. Likely cirrhosis with possible superimposed metastatic lesions or multiple hepatic carcinomas. Moderate ascites. 1.6 cm nonobstructive calculus in the right kidney Mildly distended gallbladder without stones. TECHNICAL DOCUMENTATION: JOB ID: [id number] [employer]- All Rights Reserved Reading location - IP/workstation name: [email or web address]
--- NOTE | 2017-08-07 20:11 | EKG REPORT ---
SEVERITY:- BORDERLINE ECG - SINUS TACHYCARDIA BORDERLINE PROLONGED QT INTERVAL : Confirmed by: Marko Kelley MD 07-Aug-2017 20:10:45
[2017-08-07 20:23] LABS: ALANINE AMINOTRANSFERASE 83 U/L (21-72); ALBUMIN 3.3 g/dL (3.5-5.0); ALKALINE PHOSPHATASE 177 U/L (38-126); ANION GAP 9 (5-19); ASPARTATE AMINO TRANSFERASE 201 U/L (17-59); BILIRUBIN,DIRECT 0.7 mg/dL (0.0-0.4); BILIRUBIN,TOTAL 1.5 mg/dL (0.2-1.3); BILIRUBIN,URINE SMALL (NEGATIVE); BLOOD UREA NITROGEN 13 mg/dL (7-20); CALCIUM 8.7 mg/dL (8.4-10.2); CALCIUM OXALATE CRYSTALS,URINE FEW /HPF; CARBON DIOXIDE 29 mmol/L (22-30); CHLORIDE 100 mmol/L (98-107); GLUCOSE 122 mg/dL (75-110); GLUCOSE, URINE NEGATIVE (NEGATIVE); KETONES,URINE NEGATIVE (NEGATIVE); LEUKOCYTE ESTERASE,URINE MODERATE (NEGATIVE); NITRITE,URINE NEGATIVE (NEGATIVE); POTASSIUM 3.9 mmol/L (3.6-5.0); PROTEIN,URINE 30 mg/dL (NEGATIVE); SODIUM 137.7 mmol/L (137-145); TOTAL PROTEIN 7.1 g/dL (6.3-8.2); URINE SPECIFIC GRAVITY 1.029
[2017-08-07 20:27] LABS: APPEARANCE,URINE CLEAR; COLOR,URINE DARK YELLOW
--- NOTE | 2017-08-07 21:43 | ER Document Report ---
ED General - General Chief Complaint: Abdominal Distention Stated Complaint: LEG PAIN/SHORTNESS OF BREATH Time Seen by Provider: 08/07/17 19:01 Notes: Patient is a 56-year-old male with a past medical history of hepatitis C with associated liver cirrhosis, Suboxone dependence with a history of former IV drug use who presents with 3 months of progressively worsening abdominal swelling that has become progressively worse over the last 1-2 weeks. He notes that he has a sensation of a abdominal fullness and distention that is moderately uncomfortable. Nothing improves or worsens that pain. Denies any focal areas of pain. No fever, nausea, vomiting, headache or altered mental status. He does report of a chronic burning sensation to his right lower extremity which is unchanged today and not the primary reason for his emergency department visit. The patient does not have a primary care doctor and has no access to care. TRAVEL OUTSIDE OF THE [place] IN LAST 30 DAYS: No - Related Data Allergies/Adverse Reactions: No Known Allergies Allergy (Verified 08/07/17 18:59) Past Medical History - General Information source: Patient - Social History Smoking Status: Current Every Day Smoker Chew tobacco use (# tins/day): No Frequency of alcohol use: None Drug Abuse: None Lives with: Alone Family History: DM, Hypertension Patient has suicidal ideation: No Patient has homicidal ideation: No - Past Medical History Cardiac Medical History: Reports: Hx Hypertension Denies: Hx Coronary Artery Disease, Hx Heart Attack Pulmonary Medical History: Denies: Hx Asthma, Hx Bronchitis, Hx COPD, Hx Pneumonia, Hx Tuberculosis Neurological Medical History: Reports: Hx Cerebrovascular Accident. Denies: Hx Seizures Endocrine Medical History: Reports: Hx Diabetes Mellitus Type 2 - borderline Renal/ Medical History: Denies: Hx Peritoneal Dialysis GI Medical History: Reports: Hx Hepatitis - hep C Musculoskeltal Medical History: Denies Hx Arthritis Traumatic Medical History: Reports: Hx Fractures - ribs, right clavicle Infectious Medical History: Reports: Hx Hepatitis - hep C Past Surgical History: Reports: Hx Orthopedic Surgery - lumbar backx2, right clavicle - Immunizations Hx Diphtheria, Pertussis, Tetanus Vaccination: No - unk Review of Systems - Review of Systems Notes: Constitutional: Negative for fever. HENT: Negative for sore throat. Eyes: Negative for visual changes. Cardiovascular: Negative for chest pain. Respiratory: Negative for shortness of breath. Gastrointestinal: Positive for abdominal fullness and discomfort. Positive for nausea. Genitourinary: Negative for dysuria. Musculoskeletal: Positive for right leg pain Skin: Negative for rash. Neurological: Negative for headaches, weakness or numbness. 10 point ROS negative except as marked above and in HPI. Physical Exam - Vital signs Vitals: Temp Pulse Resp BP Pulse Ox 98.0 F 111 H 20 159/91 H 98 08/07/17 18:47 08/07/17 18:47 08/07/17 18:47 08/07/17 18:47 08/07/17 18:47 Interpretation: Hypertensive, Tachycardic Notes: PHYSICAL EXAMINATION: GENERAL: Appears older than stated age, chronically ill but in no acute distress HEAD: Atraumatic, normocephalic. EYES: Pupils equal round and reactive to light, extraocular movements intact, sclera anicteric, conjunctiva are normal. ENT: nares patent, oropharynx clear without exudates. Moderately dry mucous membranes. NECK: Normal range of motion, supple without lymphadenopathy LUNGS: Breath sounds clear to auscultation bilaterally and equal. No wheezes rales or rhonchi. HEART: Regular tachycardia without murmurs ABDOMEN: Severely distended abdomen, caput medusa, fluid wave is present, no focal tenderness, normoactive bowel sounds. No guarding, no rebound. Hepatomegaly is appreciated. EXTREMITIES: Normal range of motion, trace edema that is equal and symmetric in the bilateral lower extremities. NEUROLOGICAL: No focal neurological deficits. Moves all extremities spontaneously and on command. PSYCH: Normal mood, normal affect. SKIN: Warm, Dry, normal turgor, no rashes or lesions noted. Course - Re-evaluation Re-evalutation: 08/07/17 21:40 Patient presents with 3 months of progressively worsening abdominal distention and shortness of breath on lying flat likely secondary to the large size of his abdomen. Patient has obvious caput medusae on physical examination as well as a small amount of fluid wave. He has no focal rebound or guarding but has a palpable liver. Ultrasound obtained in triage does show ascites with possible liver lesions worrisome for a primary versus metastatic malignancy. The patient does complain of some chronic right lower extremity pain but notes that this is not the primary reason for his visit today. Of note he has been evaluated on a prior visit approximately 2 months ago for the same, had a normal venous Doppler study at that time. Laboratories today show ongoing chronic liver disease with minimal change from his prior assessment. Will proceed with a CT scan of the abdomen pelvis to further clarify what was visualized on ultrasound. 08/07/17 22:37 CT does show multiple lesion to the liver with a broad differential including malignancy. Patient also has a partial portal vein thrombosis with associated varacies and splenomegaly. Given this picture and patient's complete lack of access to care, I am worries about discharge with outpatient follow-up as a reasonably safe option. I have contacted [facility] for transfer request for specific services of liver biopsy, hepatology, and consideration of therapy for hep c. 08/07/17 22:54 I have discussed this case with Dr. Morelia Montenegro at [facility] who has accepted the patient for transfer. The patient is agreeable to transfer. He remains hemodynamically within acceptable limits. A urine culture has been sent as his urinalysis does show findings consistent with a urinary tract infection and he does admit to some dysuria. A dose of 1 mg of IV ceftriaxone has been administered. Awaiting transport. 08/08/17 00:09 Patient remains appropriate and stable for transport. - Vital Signs Vital signs: Temp Pulse Resp BP Pulse Ox 98.9 F 111 H 16 157/89 H 99 08/08/17 00:15 08/07/17 18:47 08/08/17 00:14 08/08/17 00:14 08/08/17 00:14 - Laboratory Result Diagrams: 08/07/17 19:50 08/07/17 19:50 Laboratory results interpreted by me: 08/07/17 08/07/17 08/07/17 19:50 19:50 19:50 WBC 3.2 L Hgb 11.6 L Hct 35.5 L MCH 26.6 L RDW 18.7 H PT Glucose 122 H Total Bilirubin 1.5 H Direct Bilirubin 0.7 H AST 201 H ALT 83 H Alkaline Phosphatase 177 H Albumin 3.3 L Urine Protein 30 H Urine Bilirubin SMALL H Urine Urobilinogen 4.0 H Ur Leukocyte Esterase MODERATE H 08/07/17 19:50 WBC Hgb Hct MCH RDW PT 16.3 H Glucose Total Bilirubin Direct Bilirubin AST ALT Alkaline Phosphatase Albumin Urine Protein Urine Bilirubin Urine Urobilinogen Ur Leukocyte Esterase - Diagnostic Test Radiology reviewed: Reports reviewed Discharge - Discharge Clinical Impression: Portal vein thrombosis, Urinary tract infectious disease, Caput medusae Liver cirrhosis Qualifiers: Hepatic cirrhosis type: unspecified hepatic cirrhosis Ascites presence: with ascites Qualified Code(s): K74.60 - Unspecified cirrhosis of liver Condition: Fair Disposition: [place]
--- NOTE | 2017-08-07 22:14 | RADIOLOGY REPORT (SQ) ---
EXAM DESCRIPTION: CT ABD/PELVIS WITH IV ONLY COMPLETED DATE/TIME: 08/07/2017 9:55 pm REASON FOR STUDY: eval liver lesions, abdominal pain COMPARISON: Ultrasound same day TECHNIQUE: CT scan of the abdomen and pelvis performed using helical scanning technique with dynamic intravenous contrast injection. No oral contrast. Images reviewed with lung, soft tissue, and bone windows. Reconstructed coronal and sagittal MPR images reviewed. Delayed images for evaluation of the urinary system also acquired. All images stored on PACS. All CT scanners at this facility use dose modulation, iterative reconstruction, and/or weight based d osing when appropriate to reduce radiation dose to as low as reasonably achievable (ALARA). [facility]: Dose Right [facility]: CareDose [facility]: Dose Right [facility]: Teradose 4D [facility]: ChaseFuture CONTRAST TYPE AND DOSE: contrast/concentration: Isovue 370.00 mg/ml; Total Contrast Delivered: 100.0 ml; Total Saline Delivered: 70.0 ml RENAL FUNCTION: GFR > 60. RADIATION DOSE: CT Rad equipment meets quality standard of care and radiation dose reduction techniq ues were employed. CTDIvol: NaN - NaN mGy. DLP: 0 mGy-cm.. LIMITATIONS: None. FINDINGS: LOWER CHEST: No significant findings. No nodules or infiltrates. LIVER: The lobular liver small in size. There are vague areas of low density in the liver without di screte masses. . There is a possible larger mass lesion in the superior right lobe although no diana rcut margins. Portal vein very poorly seen and there is possible filling defect in the portal vein. There are mult iple varices along the pancreas, splenic hilum, in the mesenteric. SPLEEN: Enlarged. PANCREAS: No focal masses. GALLBLADDER: No identified stones by CT criteria. No inflammatory changes to suggest cholecystitis. ADRENAL GLANDS: No significant masses or asymmetry. RIGHT KIDNEY AND URETER: No solid masses. 1.7 cm nonobstructive calculus. No hydronephrosis or hy droureter. LEFT KIDNEY AND URETER: No solid masses. Peripheral nonobstructive calculus. No hydronephrosis or hydroureter. AORTA AND VESSELS: No aneurysm. No dissection. Renal arteries, SMA, celiac without stenosis. RETROPERITONEUM: No retroperitoneal adenopathy, hemorrhage or masses. BOWEL AND PERITONEAL CAVITY: No masses or inflammatory changes. Extensive ascites. . APPENDIX: Normal. PELVIS: No mass. Pelvic free fluid. . Normal bladder. ABDOMINAL WALL: No masses. No hernias. BONES: No significant or acute findings. OTHER: No other significant finding. IMPRESSION: No well-defined discrete mass is seen in liver however there are some vague low-density areas as well as a larger low-density area superiorly with ill defined borders. Multifocal hepatoma in the differential as is metastatic disease. Findings can also be related to the generalized cirrh osis. Generalized ascites Extensive varices. 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 Splenomegaly. TECHNICAL DOCUMENTATION: JOB ID: [id number] Quality ID # [id number]: Final reports with documentation of one or more dose reduction techniques (e.g., Au tomated exposure control, adjustment of the mA and/or kV according to patient size, use of iterative reconstruction technique) 2010 [employer]- All Rights Reserved Reading location - IP/workstation name: [email or web address]
[2017-08-07 22:52] LABS: INTERNATIONAL RATION (INR) 1.25; PROTHROMBIN TIME 16.3 SEC (11.4-15.4)
[2017-08-07] MEDS ORDERED: CEFTRIAXONE INJ 1000 MG VIAL IV ONE (22:54)
[2017-08-08 00:16] VITALS: BP 157/89
== END 2017-08-08 00:25 | disposition short-term general hospital (02) ==
LOC: ER 18:30
DX: I82.90 Acute embolism and thrombosis of unspecified vein (principal); N39.0 Urinary tract infection, site not specified; I86.8 Varicose veins of other specified sites; K74.60 Unspecified cirrhosis of liver; B19.20 Unspecified viral hepatitis C without hepatic coma; R14.0 Abdominal distension (gaseous); R06.02 Shortness of breath; M79.604 Pain in right leg; Z79.899 Other long term (current) drug therapy; F17.200 Nicotine dependence, unspecified, uncomplicated; I10 Essential (primary) hypertension; E11.9 Type 2 diabetes mellitus without complications
CPT/HCPCS: 93005; 99285; 96365; 36415; 87086; 85025; 85610; 87088; 80053; 81001; 87186; 76705; 74177; 93010; J0696

== ENCOUNTER 2017-10-17 13:39 | Emergency (ER) | payer MEDICAID, OTHER ==
--- NOTE | 2017-10-17 14:43 | ER Document Report ---
ED Medical Screen (RME) - General Chief Complaint: Diarrhea Stated Complaint: DIARRHEA Time Seen by Provider: 10/17/17 14:36 Notes: 57-year-old male patient on lactulose for elevated ammonia levels, chronic hep C , ADHD, chronic pain on Suboxone. Daughter reports he has been more confused and there is concern about his ammonia levels being elevated. He is [facility] at [facility], does not have a local medical doctor. TRAVEL OUTSIDE OF THE [place] IN LAST 30 DAYS: No - Related Data Allergies/Adverse Reactions: No Known Allergies Allergy (Verified 10/17/17 13:42) Past Medical History - Social History Frequency of alcohol use: None Drug Abuse: None - Past Medical History Cardiac Medical History: Reports: Hx Hypertension Denies: Hx Coronary Artery Disease, Hx Heart Attack Pulmonary Medical History: Denies: Hx Asthma, Hx Bronchitis, Hx COPD, Hx Pneumonia, Hx Tuberculosis Neurological Medical History: Reports: Hx Cerebrovascular Accident. Denies: Hx Seizures Endocrine Medical History: Reports: Hx Diabetes Mellitus Type 2 - borderline Renal/ Medical History: Denies: Hx Peritoneal Dialysis GI Medical History: Reports: Hx Hepatitis - hep C Musculoskeltal Medical History: Denies Hx Arthritis Traumatic Medical History: Reports: Hx Fractures - ribs, right clavicle Infectious Medical History: Reports: Hx Hepatitis - hep C Past Surgical History: Reports: Hx Orthopedic Surgery - lumbar backx2, right clavicle - Immunizations Hx Diphtheria, Pertussis, Tetanus Vaccination: No - unk Physical Exam - Vital signs Vitals: Temp Pulse Resp BP Pulse Ox 98.3 F 95 20 168/77 H 97 10/17/17 13:53 10/17/17 13:53 10/17/17 13:53 10/17/17 13:53 10/17/17 13:53 Course - Vital Signs Vital signs: Temp Pulse Resp BP Pulse Ox 98.3 F 95 20 168/77 H 97 10/17/17 13:53 10/17/17 13:53 10/17/17 13:53 10/17/17 13:53 10/17/17 13:53
[2017-10-17 15:13] LABS: HEMATOCRIT 40.5 % (37.9-51.0); HEMOGLOBIN 13.4 g/dL (13.5-17.0); MEAN CORPUSCULAR HEMOGLOBIN 27.8 pg (27.0-33.4); MEAN CORPUSCULAR HGB CONC 33.1 g/dL (32.0-36.0); MEAN CORPUSCULAR VOLUME 84 fl (80-97); PLATELET COUNT 106 10^3/uL (150-450); RED BLOOD COUNT 4.81 10^6/uL (4.35-5.55); RED CELL DISTRIBUTION WIDTH 19.4 % (11.5-14.0); WHITE BLOOD COUNT 18.5 10^3/uL (4.0-10.5)
[2017-10-17 15:17] LABS: PROTHROMBIN TIME 21.8 SEC (11.4-15.4)
[2017-10-17 15:33] LABS: ALANINE AMINOTRANSFERASE 83 U/L (21-72); ALBUMIN 2.5 g/dL (3.5-5.0); ALKALINE PHOSPHATASE 162 U/L (38-126); ANION GAP 11 (5-19); ASPARTATE AMINO TRANSFERASE 78 U/L (17-59); BILIRUBIN,TOTAL 9.1 mg/dL (0.2-1.3); BLOOD UREA NITROGEN 29 mg/dL (7-20); CARBON DIOXIDE 25 mmol/L (22-30); CHLORIDE 101 mmol/L (98-107); GLUCOSE 160 mg/dL (75-110); POTASSIUM 4.9 mmol/L (3.6-5.0); SODIUM 136.8 mmol/L (137-145)
[2017-10-17 15:37] LABS: ABSOLUTE LYMPHOCYTES# (MANUAL) 0.2 10^3/uL (0.5-4.7); ABSOLUTE MONOCYTES # (MANUAL) 0.4 10^3/uL (0.1-1.4); ABSOLUTE NEUTROPHILS# (MANUAL) 17.9 10^3/uL (1.7-8.2); ANISOCYTOSIS 2+; BASOPHILS % (MANUAL) 0 % (0-2); BURR CELLS 1+; EOSINOPHILS % (MANUAL) 0 % (0-6); LYMPHOCYTES % (MANUAL) 1 % (13-45); MONOCYTES % (MANUAL) 2 % (3-13); POIKILOCYTOSIS 1+; SEGMENTED NEUTROPHILS % (MAN) 97 % (42-78); TOTAL CELLS COUNTED 100
[2017-10-17 15:38] LABS: OVALOCYTES 1+; PLATELET COMMENT DECREASED; TEAR DROP CELLS SLIGHT
[2017-10-17] MEDS ORDERED: LACTULOSE SYRUP 20 GM/30 ML UDCUP PO ONE (16:13)
[2017-10-17 19:18] VITALS: BP 140/125
--- NOTE | 2017-10-17 19:45 | ER Document Report ---
ED General - General Chief Complaint: Diarrhea Stated Complaint: DIARRHEA Time Seen by Provider: 10/17/17 14:36 Mode of Arrival: Ambulatory Information source: Patient, Relative Notes: 57 y/o male with hepatitis C, recent diagnosis of liver cancer currently undergoing treatment with Dr Mccracken at [facility] presents with his family who is concerned that the patient's ammonia levels may be elevated secondary to the patient not wanting to take his lactulose because it has him "constantly to bathroom." Patient had a recent hospital admission at [facility] for confusion elevated ammonia levels reported to be in the 100's and when discharged had his lactulose dose increased. Daughter reports that the patient seemed more confused but he is alert awake and states he has no pain or any complaints. daughter states "he's mad that we brought him here". He denies chest pain, SOB, abdominal pain, nausea, vomiting, fever, chills, headache. He has had the need for paracentesis when last hospitalized but he does not feel that his abdomen is that distended. He is eating and drinking per the family. TRAVEL OUTSIDE OF THE [place] IN LAST 30 DAYS: No - HPI Onset: Other Quality of pain: No pain Associated symptoms: Diarrhea. denies: Chest pain, Nonproductive cough, Fever, Nausea, Vomiting, Shortness of breath Similar symptoms previously: Yes Recently seen / treated by doctor: Yes - recent discharge from [facility] this month - Related Data Allergies/Adverse Reactions: No Known Allergies Allergy (Verified 10/17/17 13:42) Past Medical History - General Information source: Patient, Relative, [facility] Records, Outside Facility Records - Social History Smoking Status: Current Some Day Smoker Cigarette use (# per day): Yes - 5-6 Frequency of alcohol use: None Drug Abuse: None Lives with: Family Family History: DM, Hypertension Patient has suicidal ideation: No Patient has homicidal ideation: No - Past Medical History Cardiac Medical History: Reports: Hx Hypertension Denies: Hx Coronary Artery Disease, Hx Heart Attack Pulmonary Medical History: Denies: Hx Asthma, Hx Bronchitis, Hx COPD, Hx Pneumonia, Hx Tuberculosis Neurological Medical History: Reports: Hx Cerebrovascular Accident. Denies: Hx Seizures Endocrine Medical History: Reports: Hx Diabetes Mellitus Type 2 - borderline Renal/ Medical History: Denies: Hx Peritoneal Dialysis GI Medical History: Reports: Hx Hepatitis - hep C Musculoskeltal Medical History: Denies Hx Arthritis Traumatic Medical History: Reports: Hx Fractures - ribs, right clavicle Infectious Medical History: Reports: Hx Hepatitis - hep C Past Surgical History: Reports: Hx Orthopedic Surgery - lumbar backx2, right clavicle - Immunizations Hx Diphtheria, Pertussis, Tetanus Vaccination: No - unk Review of Systems - Review of Systems Constitutional: Malaise, Recent illness. denies: Chills, Fever EENT: denies: Blurred vision, Difficulty swallowing Cardiovascular: denies: Chest pain, Palpitations, Dizziness, Lightheaded Respiratory: denies: Short of breath Gastrointestinal: Diarrhea. denies: Abdominal pain, Nausea, Vomiting, Blood in vomit, Black stools Genitourinary: denies: Dysuria, Flank pain Male Genitourinary: No symptoms reported Musculoskeletal: No symptoms reported Skin: Rash Hematologic/Lymphatic: denies: Easy bruising Neurological/Psychological: Confusion -: Yes All other systems reviewed and negative Physical Exam - Vital signs Vitals: Temp Pulse Resp BP Pulse Ox 98.3 F 95 20 168/77 H 97 10/17/17 13:53 10/17/17 13:53 10/17/17 13:53 10/17/17 13:53 10/17/17 13:53 - General General appearance: Alert. No: Unresponsive In distress: None - HEENT Head: Normocephalic Eyes: Scleral icterus Conjunctiva: Icteric Extraocular movements intact: Yes Pupils: PERRL Mouth/Lips: Normal Mucous membranes: Moist Pharynx: Normal Neck: Normal - Respiratory Respiratory status: No respiratory distress. No: Respiratory distress, Tachypnea Chest status: No: Accessory muscle use Breath sounds: Normal Chest palpation: Normal - Cardiovascular Rhythm: Regular Heart sounds: Normal auscultation - Abdominal Inspection: Caput medussa, Striae Distension: Distended, Fluid wave Bowel sounds: Normal Tenderness: Nontender Organomegaly: Hepatomegaly - Back Back: Normal - Extremities General upper extremity: Nontender, Edema General lower extremity: Nontender - Neurological Neuro grossly intact: Yes Cognition: Normal Orientation: AAOx4 [place] Coma Scale Eye Opening: Spontaneous [place] Coma Scale Verbal: Oriented Raj Coma Scale Motor: Obeys Commands Raj Coma Scale Total: 15 Speech: Normal Cranial nerves: Normal Cerebellar coordination: No: Gait ataxia - Psychological Associated symptoms: Normal affect Course - Re-evaluation Re-evalutation: 10/18/17 18:28 Laboratory 10/17/17 10/17/17 10/17/17 14:45 14:45 14:45 WBC 18.5 H RBC 4.81 Hgb 13.4 L Hct 40.5 MCV 84 MCH 27.8 MCHC 33.1 RDW 19.4 H Plt Count 106 L Total Counted 100 Seg Neutrophils % Not Reportable Seg Neuts % (Manual) 97 H Lymphocytes % Not Reportable Lymphocytes % (Manual) 1 L Monocytes % Not Reportable Monocytes % (Manual) 2 L Eosinophils % Not Reportable Eosinophils % (Manual) 0 Basophils % Not Reportable Basophils % (Manual) 0 Absolute Neutrophils Not Reportable Abs Neuts (Manual) 17.9 H Absolute Lymphocytes Not Reportable Abs Lymphs (Manual) 0.2 L Absolute Monocytes Not Reportable Abs Monocytes (Manual) 0.4 Absolute Eosinophils Not Reportable Absolute Eos (Manual) 0.0 Absolute Basophils Not Reportable Abs Basophils (Manual) 0.0 Platelet Comment DECREASED Poikilocytosis 1+ Anisocytosis 2+ Tear Drop Cells SLIGHT Ovalocytes 1+ Chacho Cells 1+ PT 21.8 H INR 1.80 Sodium 136.8 L Potassium 4.9 Chloride 101 Carbon Dioxide 25 Anion Gap 11 BUN 29 H Creatinine 0.63 Est GFR ( Amer) > 60 Est GFR (Non-Af Amer) > 60 Glucose 160 H Calcium 9.0 Total Bilirubin 9.1 H Direct Bilirubin 4.0 H Neonat Total Bilirubin Not Reportable Neonat Direct Bilirubin Not Reportable Neonat Indirect Bili Not Reportable AST 78 H ALT 83 H Alkaline Phosphatase 162 H Ammonia Total Protein 6.0 L Albumin 2.5 L 10/17/17 15:27 WBC RBC Hgb Hct MCV MCH MCHC RDW Plt Count Total Counted Seg Neutrophils % Seg Neuts % (Manual) Lymphocytes % Lymphocytes % (Manual) Monocytes % Monocytes % (Manual) Eosinophils % Eosinophils % (Manual) Basophils % Basophils % (Manual) Absolute Neutrophils Abs Neuts (Manual) Absolute Lymphocytes Abs Lymphs (Manual) Absolute Monocytes Abs Monocytes (Manual) Absolute Eosinophils Absolute Eos (Manual) Absolute Basophils Abs Basophils (Manual) Platelet Comment Poikilocytosis Anisocytosis Tear Drop Cells Ovalocytes Zoar Cells PT INR Sodium Potassium Chloride Carbon Dioxide Anion Gap BUN Creatinine Est GFR ( Amer) Est GFR (Non-Af Amer) Glucose Calcium Total Bilirubin Direct Bilirubin Neonat Total Bilirubin Neonat Direct Bilirubin Neonat Indirect Bili AST ALT Alkaline Phosphatase Ammonia 49.6 H Total Protein Albumin 57 y/o male with hepatitis C, recent diagnosis of liver cancer currently undergoing treatment with Dr Mccracken at [facility] presents with his family who is concerned that the patient's ammonia levels may be elevated secondary to the patient not wanting to take his lactulose because it has him "constantly to bathroom." Patient had a recent hospital admission at [facility] for confusion elevated ammonia levels reported to be in the 100's and when discharged had his lactulose dose increased. Daughter reports that the patient seemed more confused but he is alert awake and states he has no pain or any complaints. daughter states "he's mad that we brought him here". He denies chest pain, SOB, abdominal pain, nausea, vomiting, fever, chills, headache. He has had the need for paracentesis when last hospitalized but he does not feel that his abdomen is that distended. He is eating and drinking per the family. Upon arrival VSS. He is hypertensive but afebrile and not hypoxic. He is jaundiced with a distended abdomen and fluid wave, but has no physical complaints. he is laughing and joking and asking when he can go home. Patient found to have elevation in his LFTs, direct and total bilirubin.This would be expected in someone with liver failure/cancer. these labs were reviewed with the daughter who believes these look much improved from recent bloodwork at [facility]. Patient ammonia level is elevated but patient does not appear confused and admits to not being cooperative at times about taking his lactulose. But states he will take it. CBC shows leukocytosis which is likely secondary to patient being started on a steroid. Patient does have upcoming f/u in two weeks with his oncologist. he has just been improved for medicare and family working on establishing primary care. Family members are at the bedside and with the patient are comfortable going home. Patient and family urged to return with any changes or concerns. Patient ambulating and tolerating PO prior to discharge. I do not feel admission here today would significantly benefit the patient. His elevated ammonia level is not new and currently being addressed by liver team. He himself is without complaints and he has a good support system at home. 10/18/17 18:29 - Vital Signs Vital signs: Temp Pulse Resp BP Pulse Ox 97.6 F 95 22 H 140/125 H 83 L 10/17/17 18:33 10/17/17 13:53 10/17/17 18:46 10/17/17 18:46 10/17/17 19:08 - Laboratory Result Diagrams: 10/17/17 14:45 10/17/17 14:45 Laboratory results interpreted by me: 10/17/17 10/17/17 10/17/17 14:45 14:45 14:45 WBC 18.5 H Hgb 13.4 L RDW 19.4 H Plt Count 106 L Seg Neuts % (Manual) 97 H Lymphocytes % (Manual) 1 L Monocytes % (Manual) 2 L Abs Neuts (Manual) 17.9 H Abs Lymphs (Manual) 0.2 L PT 21.8 H Sodium 136.8 L BUN 29 H Glucose 160 H Total Bilirubin 9.1 H Direct Bilirubin 4.0 H AST 78 H ALT 83 H Alkaline Phosphatase 162 H Ammonia Total Protein 6.0 L Albumin 2.5 L 10/17/17 15:27 WBC Hgb RDW Plt Count Seg Neuts % (Manual) Lymphocytes % (Manual) Monocytes % (Manual) Abs Neuts (Manual) Abs Lymphs (Manual) PT Sodium BUN Glucose Total Bilirubin Direct Bilirubin AST ALT Alkaline Phosphatase Ammonia 49.6 H Total Protein Albumin Discharge - Discharge Clinical Impression: Liver failure Qualifiers: Liver failure chronicity: chronic Hepatic coma status: without hepatic coma Qualified Code(s): K72.10 - Chronic hepatic failure without coma Liver cancer Qualifiers: Liver malignancy type: unspecified liver malignancy Qualified Code(s): C22.9 - Malignant neoplasm of liver, not specified as primary or secondary Diarrhea Qualifiers: Diarrhea type: unspecified type Qualified Code(s): R19.7 - Diarrhea, unspecified Condition: Fair Disposition: HOME, SELF-CARE Instructions: Liver Function Abnormality ([facility]) Additional Instructions: Please follow-up with your cancer doctor as already scheduled. Forms: Elevated Blood Pressure
== END 2017-10-17 20:10 | disposition home or self-care (01) ==
LOC: ER 13:39
DX: R19.7 Diarrhea, unspecified (principal); K72.10 Chronic hepatic failure without coma; C22.8 Malignant neoplasm of liver, primary, unspecified as to type; B19.20 Unspecified viral hepatitis C without hepatic coma; I10 Essential (primary) hypertension; R14.0 Abdominal distension (gaseous); R53.81 Other malaise; D72.829 Elevated white blood cell count, unspecified; R41.0 Disorientation, unspecified; F17.210 Nicotine dependence, cigarettes, uncomplicated
CPT/HCPCS: 99284; 36415; 82140; 85025; 85610; 80053; J3490

== ENCOUNTER 2017-10-18 17:35 | Emergency (ER) | payer MEDICAID, OTHER ==
[2017-10-18 18:15] LABS: VENOUS BLOOD BASE EXCESS 2.4 mmol/L; VENOUS BLOOD HCO3 27.2 mmol/L (20-32); VENOUS BLOOD PCO2 42.7 mmHg (35-63); VENOUS BLOOD PH 7.42 (7.30-7.42)
[2017-10-18 18:19] LABS: ABSOLUTE LYMPHOCYTES (AUTO) 0.9 10^3/uL (0.5-4.7); ABSOLUTE MONOCYTES (AUTO) 0.2 10^3/uL (0.1-1.4); ABSOLUTE NEUT (AUTO) 9.7 10^3/uL (1.7-8.2); BASOPHILS % (AUTO) 0.1 % (0-2); HEMATOCRIT 39.1 % (37.9-51.0); LYMPHOCYTES % (AUTO) 7.9 % (13-45); MEAN CORPUSCULAR HGB CONC 33.3 g/dL (32.0-36.0); MEAN CORPUSCULAR VOLUME 84 fl (80-97); RED BLOOD COUNT 4.65 10^6/uL (4.35-5.55); RED CELL DISTRIBUTION WIDTH 19.4 % (11.5-14.0); TOTAL CELLS COUNTED % (AUTO) 100 %; WHITE BLOOD COUNT 10.8 10^3/uL (4.0-10.5)
[2017-10-18] MEDS ORDERED: LACTULOSE SYRUP 20 GM/30 ML UDCUP PR ONE (18:25)
--- NOTE | 2017-10-18 18:32 | ER Document Report ---
ED General - General Chief Complaint: Unresponsive Stated Complaint: UNRESPONSIVE Time Seen by Provider: 10/18/17 18:08 Mode of Arrival: Medic Information source: Relative Cannot obtain history due to: Altered mental status Notes: 57-year-old male with a history of hepatitis C, liver cancer, cirrhosis presents emergency department for altered mental status. Patient was seen in the emergency department yesterday for diarrhea and confusion. Patient had stopped taking his lactulose because it was causing him to have diarrhea. Patient was found to have an elevated ammonia level. He was given lactulose in the emergency department and discharged home. Patient's [id number] is with the patient at bedside. She states that he has decompensated today. She states that he is not acting like his normal self. He is just moaning. He follows up with an oncologist at [facility], Dr. Mccracken. Daughter is requesting transfer. EMS vitals are remarkable for an elevated temperature of 101.8 and tachycardia. Patient was given rectal Tylenol and route. In the emergency department, patient's vital signs are stable. Patient has a GCS of 11. His gfavlrag-il-mar is with patient at bedside. She does not know what patient's wishes are regarding code status. TRAVEL OUTSIDE OF THE [place] IN LAST 30 DAYS: No - HPI Onset: This morning Onset/Duration: Sudden Quality of pain: No pain Associated symptoms: Fever Exacerbated by: Denies Relieved by: Denies Similar symptoms previously: No Recently seen / treated by doctor: Yes - Related Data Allergies/Adverse Reactions: No Known Allergies Allergy (Verified 10/17/17 13:42) Past Medical History - Social History Smoking Status: Former Smoker Chew tobacco use (# tins/day): No Frequency of alcohol use: None Drug Abuse: None Family History: DM, Hypertension Patient has suicidal ideation: No Patient has homicidal ideation: No - Past Medical History Cardiac Medical History: Reports: Hx Hypertension Denies: Hx Coronary Artery Disease, Hx Heart Attack Pulmonary Medical History: Denies: Hx Asthma, Hx Bronchitis, Hx COPD, Hx Pneumonia, Hx Tuberculosis Neurological Medical History: Reports: Hx Cerebrovascular Accident. Denies: Hx Seizures Endocrine Medical History: Reports: Hx Diabetes Mellitus Type 2 - borderline Renal/ Medical History: Denies: Hx Peritoneal Dialysis GI Medical History: Reports: Hx Hepatitis - hep C Musculoskeltal Medical History: Denies Hx Arthritis Traumatic Medical History: Reports: Hx Fractures - ribs, right clavicle Infectious Medical History: Reports: Hx Hepatitis - hep C Past Surgical History: Reports: Hx Orthopedic Surgery - lumbar backx2, right clavicle - Immunizations Hx Diphtheria, Pertussis, Tetanus Vaccination: No - unk Review of Systems - Review of Systems -: Yes ROS unobtainable due to patient's medical condition Physical Exam - Vital signs Vitals: Resp Pulse Ox 17 96 10/18/17 17:45 10/18/17 17:45 - Notes Notes: PHYSICAL EXAMINATION: GENERAL: GCS of 11. Moaning. HEAD: Atraumatic. EYES: Pupils equal round and reactive to light, extraocular movements intact, sclera icterus, conjunctiva are normal. ENT: Nares patent, oropharynx clear without exudates. Moist mucous membranes. NECK: Normal range of motion, supple without lymphadenopathy LUNGS: Breath sounds clear to auscultation bilaterally and equal. No wheezes rales or rhonchi. HEART: Regular rate and rhythm without murmurs ABDOMEN: Soft, nontender, nondistended abdomen. No guarding, no rebound. Musculoskeletal: Normal range of motion, no pitting or edema. No cyanosis. NEUROLOGICAL: Cranial nerves grossly intact. GCS of 11. Normal sensory, motor exams SKIN: Warm, Dry, normal turgor, no rashes or lesions noted. Course - Re-evaluation Re-evalutation: 10/18/17 20:54 I contacted [facility] for transfer. I spoke with Dr. Payton. She would like a CT abdomen and pelvis done in the patient started on Zosyn. Patient awaiting bed. 10/18/17 22:19 CT done. Liver neoplasm. Cirrhosis. Ascites. Will transfer to [facility]. Patient stable for transfer. 10/18/17 22:20 - Vital Signs Vital signs: Temp Pulse Resp BP Pulse Ox 99.0 F 17 126/85 H 94 10/18/17 21:36 10/18/17 21:36 10/18/17 21:36 10/18/17 21:36 - Laboratory Result Diagrams: 10/18/17 17:56 10/18/17 17:56 Laboratory results interpreted by me: 10/18/17 10/18/17 10/18/17 17:56 17:56 17:56 WBC 10.8 H Hgb 13.0 L RDW 19.4 H Plt Count 72 L Seg Neutrophils % 90.0 H Lymphocytes % 7.9 L Monocytes % 2.0 L Absolute Neutrophils 9.7 H PT 24.2 H BUN 29 H Glucose 162 H Lactic Acid Total Bilirubin 9.2 H Direct Bilirubin 4.6 H AST 91 H Alkaline Phosphatase 137 H Total Protein 5.4 L Albumin 2.2 L Urine Urobilinogen Ur Leukocyte Esterase 10/18/17 10/18/17 17:56 19:02 WBC Hgb RDW Plt Count Seg Neutrophils % Lymphocytes % Monocytes % Absolute Neutrophils PT BUN Glucose Lactic Acid 4.7 H Total Bilirubin Direct Bilirubin AST Alkaline Phosphatase Total Protein Albumin Urine Urobilinogen 4.0 H Ur Leukocyte Esterase SMALL H - EKG Interpretation by Me Additional EKG results interpreted by me: 10/18/17 19:22 EKG: Ventricular rate 100, NE interval 116, QRS duration 90, QTc 449, sinus tachycardia, LVH, similar to previous EKG done on 08/07/17. Discharge - Discharge Clinical Impression: Thrombocytopenia Altered mental status Qualifiers: Altered mental status type: unspecified Qualified Code(s): R41.82 - Altered mental status, unspecified Cirrhosis Qualifiers: Hepatic cirrhosis type: unspecified hepatic cirrhosis Ascites presence: with ascites Qualified Code(s): K74.60 - Unspecified cirrhosis of liver; R18.8 - Other ascites; R18.8 - Other ascites Urinary tract infection Qualifiers: Urinary tract infection type: site unspecified Hematuria presence: without hematuria Qualified Code(s): N39.0 - Urinary tract infection, site not specified Condition: Stable Disposition: [place]
[2017-10-18 18:33] LABS: INTERNATIONAL RATION (INR) 2.06; PROTHROMBIN TIME 24.2 SEC (11.4-15.4)
[2017-10-18 18:37] LABS: ALANINE AMINOTRANSFERASE 69 U/L (21-72); ALBUMIN 2.2 g/dL (3.5-5.0); ALKALINE PHOSPHATASE 137 U/L (38-126); ANION GAP 8 (5-19); ASPARTATE AMINO TRANSFERASE 91 U/L (17-59); BILIRUBIN,DIRECT 4.6 mg/dL (0.0-0.4); BILIRUBIN,TOTAL 9.2 mg/dL (0.2-1.3); BLOOD UREA NITROGEN 29 mg/dL (7-20); CALCIUM 9.2 mg/dL (8.4-10.2); CARBON DIOXIDE 30 mmol/L (22-30); CHLORIDE 100 mmol/L (98-107); GLUCOSE 162 mg/dL (75-110); SODIUM 138.4 mmol/L (137-145); TOTAL PROTEIN 5.4 g/dL (6.3-8.2)
[2017-10-18 18:53] LABS: PLATELET COUNT 72 10^3/uL (150-450)
[2017-10-18] MEDS ORDERED: CEFTRIAXONE INJ 1000 MG VIAL IV ONE (18:54)
--- NOTE | 2017-10-18 19:24 | RADIOLOGY REPORT (SQ) ---
EXAM DESCRIPTION: CT HEAD WITHOUT COMPLETED DATE/TIME: 10/18/2017 7:06 pm REASON FOR STUDY: ams COMPARISON: 01/13/2014 TECHNIQUE: Axial images acquired through the brain without intravenous contrast. Images reviewed wi th bone, brain and subdural windows. Additional sagittal and coronal reconstructions were generated. Images stored on PACS. All CT scanners at this facility use dose modulation, iterative reconstruction, and/or weight based d osing when appropriate to reduce radiation dose to as low as reasonably achievable (ALARA). [facility]: Dose Right [facility]: CareDose [facility]: Dose Right [facility]: Teradose 4D [facility]: [employer] RADIATION DOSE: CT Rad equipment meets quality standard of care and radiation dose reduction techniq ues were employed. CTDIvol: 53.2 mGy. DLP: 991 mGy-cm. mGy. LIMITATIONS: None. FINDINGS: VENTRICLES: Normal size and contour. CEREBRUM: There is a limited area of decreased white matter attenuation in the left parietal region. Possible limited old or subacute infarction. A mass cannot be excluded in this area. CEREBELLUM: No masses. No hemorrhage. No alteration of density. No evidence for acute infarction. EXTRAAXIAL SPACES: No fluid collections. No masses. ORBITS AND GLOBE: No intra- or extraconal masses. Normal contour of globe without masses. CALVARIUM: No fracture. PARANASAL SINUSES: No fluid or mucosal thickening. SOFT TISSUES: No mass or hematoma. OTHER: No other significant finding. IMPRESSION: Limited area of decreased attenuation in the white matter in the left parietal region. Possible limited old or subacute infarction. Cannot exclude a small mass in this area. EVIDENCE OF ACUTE STROKE: NO. COMMENT: Quality ID # 436: Final reports with documentation of one or more dose reduction techniques (e.g., Automated exposure control, adjustment of the mA and/or kV according to patient size, use of iterative reconstruction technique) TECHNICAL DOCUMENTATION: JOB ID: [id number] [employer]- All Rights Reserved Reading location - IP/workstation name: [email or web address]
--- NOTE | 2017-10-18 19:26 | RADIOLOGY REPORT (SQ) ---
EXAM DESCRIPTION: CHEST SINGLE VIEW COMPLETED DATE/TIME: 10/18/2017 7:11 pm REASON FOR STUDY: altered mental status COMPARISON: 06/23/2017 EXAM PARAMETERS: NUMBER OF VIEWS: One view. TECHNIQUE: Single frontal radiographic view of the chest acquired. RADIATION DOSE: NA LIMITATIONS: None. FINDINGS: LUNGS AND PLEURA: No opacities, masses or pneumothorax. No pleural effusion. MEDIASTINUM AND HILAR STRUCTURES: No masses. Contour normal. HEART AND VASCULAR STRUCTURES: Borderline heart size no pulmonary edema. Mild ectasia of the ascendi ng aorta. BONES: No acute findings. HARDWARE: None in the chest. OTHER: No other significant finding. IMPRESSION: Borderline cardiomegaly without CHF. Ectasia of the ascending aorta. TECHNICAL DOCUMENTATION: JOB ID: [id number] [employer]- All Rights Reserved Reading location - IP/workstation name: [email or web address]
[2017-10-18 19:29] LABS: APPEARANCE,URINE CLEAR; BILIRUBIN,URINE NEGATIVE (NEGATIVE); COLOR,URINE AMBER; GLUCOSE, URINE NEGATIVE (NEGATIVE); KETONES,URINE NEGATIVE (NEGATIVE); LEUKOCYTE ESTERASE,URINE SMALL (NEGATIVE); NITRITE,URINE NEGATIVE (NEGATIVE); PROTEIN,URINE NEGATIVE (NEGATIVE); URINE SPECIFIC GRAVITY 1.015
--- NOTE | 2017-10-18 19:44 | EKG REPORT ---
SEVERITY:- ABNORMAL ECG - SINUS TACHYCARDIA LEFT VENTRICULAR HYPERTROPHY BORDERLINE T ABNORMALITIES, INFERIOR LEADS : Confirmed by: Clara Li MD 18-Oct-2017 19:43:31
[2017-10-18] MEDS ORDERED: PIPERACILLIN/TAZOBACTAM 3.375 GM VIAL IV ONE (20:53)
[2017-10-18] MEDS ORDERED: NORMAL SALINE 1000 ML 1,000 ML IV ONE ×2 (20:53→23:38)
--- NOTE | 2017-10-18 22:12 | RADIOLOGY REPORT (SQ) ---
EXAM DESCRIPTION: CT ABD/PELVIS WITH IV ONLY COMPLETED DATE/TIME: 10/18/2017 9:52 pm REASON FOR STUDY: cirrhosis COMPARISON: 08/07/2017 TECHNIQUE: CT scan of the abdomen and pelvis performed using helical scanning technique with dynamic intravenous contrast injection. No oral contrast. Images reviewed with lung, soft tissue, and bone windows. Reconstructed coronal and sagittal MPR images reviewed. Delayed images for evaluation of the urinary system also acquired. All images stored on PACS. All CT scanners at this facility use dose modulation, iterative reconstruction, and/or weight based d osing when appropriate to reduce radiation dose to as low as reasonably achievable (ALARA). [facility]: Dose Right [facility]: CareDose [facility]: Dose Right [facility]: Teradose 4D [facility]: [employer] CONTRAST TYPE AND DOSE: contrast/concentration: Isovue 370.00 mg/ml; Total Contrast Delivered: 100.0 ml; Total Saline Delivered: 40.0 ml RENAL FUNCTION: BUN 29 creatinine 0.69 RADIATION DOSE: CT Rad equipment meets quality standard of care and radiation dose reduction techniq ues were employed. CTDIvol: 20.4 - 20.7 mGy. DLP: 2472 mGy-cm.. LIMITATIONS: None. FINDINGS: LOWER CHEST: No significant findings. No nodules or infiltrates. LIVER: Small, lobulated contours, markedly heterogeneous with multiple areas of decreased attenuation . There is some enhancement in these areas. The portal vein appears to be thrombosed. SPLEEN: Splenomegaly. PANCREAS: No masses. No significant calcifications. No adjacent inflammation or peripancreatic fluid collections. Pancreatic duct not dilated. GALLBLADDER: No identified stones by CT criteria. No inflammatory changes to suggest cholecystitis. ADRENAL GLANDS: No significant masses or asymmetry. RIGHT KIDNEY AND URETER: No solid masses. Large upper calyceal calculus. No hydronephrosis or hyd roureter. LEFT KIDNEY AND URETER: No solid masses. Prominent posterior calculus in the upper pole. No hydro nephrosis or hydroureter. AORTA AND VESSELS: No aneurysm. No dissection. Renal arteries, SMA, celiac without stenosis. RETROPERITONEUM: No retroperitoneal adenopathy, hemorrhage or masses. BOWEL AND PERITONEAL CAVITY: No masses are appreciated. There is a large amount of ascites. APPENDIX: Not identified. PELVIS: Licea catheter in the bladder. Large amount of free fluid in the pelvis. ABDOMINAL WALL: No masses. No hernias. BONES: No significant or acute findings. OTHER: No other significant finding. IMPRESSION: 1. Hepatic cirrhosis. Splenomegaly. Multiple areas of decreased attenuation within th e liver which appear to show slight enhancement. Could represent multicentric neoplasm. May relate to the cirrhosis. Portal vein thrombosis. 2. Nonobstructing renal calculi bilaterally. 3. Large amount of ascites. TECHNICAL DOCUMENTATION: JOB ID: [id number] Quality ID # [id number]: Final reports with documentation of one or more dose reduction techniques (e.g., Au tomated exposure control, adjustment of the mA and/or kV according to patient size, use of iterative reconstruction technique) 2010 [employer]- All Rights Reserved Reading location - IP/workstation name: [email or web address]
[2017-10-19] MEDS ORDERED: NORMAL SALINE 1000 ML 1,000 ML IV ONE (01:09)
[2017-10-19] MEDS ORDERED: PIPERACILLIN/TAZOBACTAM 3.375 GM VIAL IV ONE (04:19)
[2017-10-19] MEDS ORDERED: VANCOMYCIN HCL INJ 1000 MG VIAL IV ONE (04:55)
[2017-10-19 09:22] VITALS: BP 150/90
== END 2017-10-19 09:55 | disposition short-term general hospital (02) ==
LOC: ER 17:35
DX: D69.6 Thrombocytopenia, unspecified (principal); R41.82 Altered mental status, unspecified; K74.60 Unspecified cirrhosis of liver; R18.8 Other ascites; N39.0 Urinary tract infection, site not specified; Z86.19 Personal history of other infectious and parasitic diseases; Z85.05 Personal history of malignant neoplasm of liver
CPT/HCPCS: 93005; 99285; 96361; 96365; 96367; 36415; 87040; 87086; 82140; 85025; 85610; 87077; 87088; 80053; 81001; 87186; 82803; 83605; 71045; 70450; 74177; 93010; J3490; J0696; J7030 ×2; J3370; J2543 ×2

== ENCOUNTER 2017-10-28 19:43 | Inpatient (IN) | payer MEDICAID ==
[2017-10-28] MEDS ORDERED: POTASSI CL 20 MEQ/D5-1/2NS 1L 1,000 ML IV ONE (20:26)
[2017-10-28] MEDS ORDERED: GLUCAGON,HUMAN RECOMB 1 MG INJ IM PRN (20:26)
[2017-10-28] MEDS ORDERED: DEXTROSE 40% GEL 15 GM TUBE PO PRN ×4 (20:26→20:27)
[2017-10-28] MEDS ORDERED: LORAZEPAM INJ 2 MG/1 ML VIAL IV PRN (20:26)
[2017-10-28] MEDS ORDERED: DEXTROSE 50%-WATER 25 GM/50 ML DISP.SYRIN IV PRN ×5 (20:26→21:23)
[2017-10-28] MEDS ORDERED: GLUCAGON,HUMAN RECOMB 1 MG INJ SUBCUT PRN (20:27)
[2017-10-28] MEDS ORDERED: MORPHINE SULFATE 10 MG/ML INJ IV ONE (21:00)
[2017-10-28 21:10] LABS: PHOSPHORUS 3.3 mg/dL (2.5-4.5)
[2017-10-28] MEDS ORDERED: ACETAMINOPHEN 325 MG TABLET NG PRN (21:23)
[2017-10-28] MEDS ORDERED: MORPHINE SULFATE 10 MG/ML INJ IV PRN (21:23)
[2017-10-28] MEDS ORDERED: INSULIN REG, HUMAN 100 UNIT/ML 3 ML VIAL (PYX) SUBCUT SCH ×2 (21:30→21:45)
[2017-10-28] MEDS ORDERED: OXYCODONE HCL IR 5 MG TABLET NG PRN (21:30)
[2017-10-28] MEDS ORDERED: (PENDING PHARMACY ID) (Vancomycin Hcl In 5 % Dextrose [Vancomycin 1 Gram/250 Ml-D5w] 1 GM) IV SCH (22:00)
[2017-10-28] MEDS ORDERED: HUM INSULIN NPH/REG INSULIN HM 100 UNIT/1 ML 3 ML SUBCUT SCH (22:00)
[2017-10-28] MEDS: HUM INSULIN NPH/REG INSULIN HM 100 UNIT/1 ML 3 ML SUBCUT SCH (23:15)
[2017-10-28] MEDS: HEPARIN SOD (PORCINE) 5,000 UNIT/ML 1 ML SYRINGE SUBCUT SCH (23:16)
[2017-10-28] MEDS: VANCOMYCIN HCL 1,000 MG in DEXTROSE 5%-WATER 250 ML IV SCH (23:16)
[2017-10-29] MEDS ORDERED: PIPERACILLIN/TAZOBACTAM 3.375 GM VIAL IV SCH
--- NOTE | 2017-10-29 00:11 | RADIOLOGY REPORT (SQ) ---
EXAM DESCRIPTION: XR ABDOMEN 1 VIEW (KUB) COMPLETED DATE/TME: 10/28/2017 21:26 CLINICAL HISTORY: 57 years, Male, Check Placement of NG Tube COMPARISON: CT, 10/18/2017 NUMBER OF VIEWS: 1 TECHNIQUE: LIMITATIONS: None. FINDINGS: Enteric tube tip at the stomach appears adequate. Bilateral nephrolithiasis measures up to 1.4 cm on the right. IMPRESSION: Enteric tube.
[2017-10-29] MEDS: OXYCODONE HCL IR 5 MG TABLET NG SCH ×5 (00:49→22:58)
[2017-10-29] MEDS: METOPROLOL TARTRATE 25 MG TABLET NG SCH ×4 (00:49→17:15)
[2017-10-29] MEDS: PIPERACILLIN SODIUM/TAZOBACTAM 3.375 GM in NORMAL SALINE 100 ML IV SCH ×4 (00:50→17:15)
[2017-10-29 01:36] LABS: URINE AMPHETAMINES SCREEN NEGATIVE; URINE BARBITURATES SCREEN NEGATIVE; URINE BENZODIAZEPINES SCREEN NEGATIVE; URINE COCAINE SCREEN NEGATIVE; URINE MARIJUANA (THC) SCREEN NEGATIVE; URINE METHADONE SCREEN NEGATIVE; URINE PHENCYCLIDINE SCREEN NEGATIVE
[2017-10-29 02:04] LABS: INTERNATIONAL RATION (INR) 1.78; PROTHROMBIN TIME 21.6 SEC (11.4-15.4)
[2017-10-29] MEDS: HUM INSULIN NPH/REG INSULIN HM 100 UNIT/1 ML 3 ML SUBCUT SCH ×3 (05:47→23:05)
[2017-10-29] MEDS: HEPARIN SOD (PORCINE) 5,000 UNIT/ML 1 ML SYRINGE SUBCUT SCH ×3 (05:48→23:05)
[2017-10-29] MEDS: LANSOPRAZOLE 30 MG TAB.RAP.DR NG SCH (05:48)
[2017-10-29 07:02] LABS: ALANINE AMINOTRANSFERASE 147 U/L (21-72); ALBUMIN 2.2 g/dL (3.5-5.0); ALKALINE PHOSPHATASE 242 U/L (38-126); ANION GAP 5 (5-19); ASPARTATE AMINO TRANSFERASE 154 U/L (17-59); BILIRUBIN,DIRECT 13.2 mg/dL (0.0-0.4); BILIRUBIN,TOTAL 18.1 mg/dL (0.2-1.3); BLOOD UREA NITROGEN 74 mg/dL (7-20); CALCIUM 8.2 mg/dL (8.4-10.2); CARBON DIOXIDE 30 mmol/L (22-30); CHLORIDE 113 mmol/L (98-107); GLUCOSE 158 mg/dL (75-110); POTASSIUM 5.4 mmol/L (3.6-5.0); SODIUM 147.9 mmol/L (137-145); TOTAL PROTEIN 5.9 g/dL (6.3-8.2)
--- NOTE | 2017-10-29 07:25 | PDOC H&P ---
History of Present Illness Admission Date/PCP: 10/28/17 19:43 Patient complains of: Unresponsive History of Present Illness: MIRTA AUGUST SR is a 57 year old male with history of end-stage liver failure , hepatitis C, hepatocellular carcinoma. Accepted in transfer from [facility] following treatment of spontaneous bacterial peritonitis. Patient appears gravely ill appearing, unresponsive, apneic with bright jaundice and large areas of ecchymosis of all extremities and displaced NG tube. Discharge summary reviewed. 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 GI Medical History: Reports: Cirrhosis, Hepatitis - hep C Musculoskeltal Medical History: Denies: Arthritis Hematology: Denies: Anemia Past Surgical History Past Surgical History: Reports: Orthopedic Surgery - lumbar backx2, right clavicle Social History Information Source: [facility] Records, Outside Facility Records Smoking Status: Unknown if Ever Smoked Frequency of Alcohol Use: None Hx Recreational Drug Use: Yes Drugs: Heroin, Marijuana Hx Prescription Drug Abuse: Yes - Advance Directive Resuscitation Status: Do Not Intubate Family History Family History: DM, Hypertension Parental Family History Reviewed: No - Unobtainable Children Family History Reviewed: No - Unobtainable Sibling(s) Family History Reviewed.: No - Unobtainable Medication/Allergy Home Medications: Acetaminophen [Tylenol 325 mg Tablet] 650 mg NG Q6HP PRN 10/28/17 Dextrose 50 % in Water [Dextrose 50%-Water Syringe] 12.5 g IV Q10MP PRN Insulin NPH Hum/Reg Insulin Hm [Humulin 70-30 Vial] 30 units SQ Q8 10/28/17 Insulin Regular, Human [Humulin R (Reg) Insulin 100 unit/mL] 0 units SQ .PERSLIDINGSCALE 10/28/17 Metoprolol Tartrate [Lopressor 25 mg Tablet] 25 mg NG Q6 10/28/17 Morphine Sulfate [Morphine 10 mg/ml Inj] 4 mg IV Q2HP PRN 10/28/17 Omeprazole 40 mg NG DAILY 10/28/17 Oxycodone HCl 15 mg NG Q4HP PRN 10/28/17 Oxycodone HCl [Oxycodone HCl 10 MG Tablet] 10 mg NG Q6 10/28/17 Piperacillin Sodium/Tazobactam [Zosyn 3.375 Gram Vial] 3.375 gm IV Q6 10/28/17 Prednisone 40 mg NG DAILY 10/28/17 Rifaximin [Xifaxan 550 mg Tablet] 550 mg NG BID 10/28/17 Vancomycin HCl in 5 % Dextrose [Vancomycin 1 Gram/250 ml-D5w] 1 gm IV Q12 Allergies/Adverse Reactions: No Known Allergies Allergy (Verified 10/17/17 13:42) Review of Systems ROS unobtainable: Due to mental status Physical Exam Vital Signs: Temp Pulse Resp BP Pulse Ox 98.8 F 87 15 133/79 H 96 10/29/17 04:00 10/29/17 04:00 10/29/17 04:00 10/29/17 04:00 10/29/17 04:00 Intake & Output 10/27/17 10/28/17 10/29/17 11:59 11:59 11:59 Intake Total 700 Output Total 250 Balance 450 Weight 115.4 kg General appearance: PRESENT: disheveled, severe distress, thin, other - Marketed jaundice, unresponsive, temporal wasting and cachexia. ABSENT: cooperative Head exam: PRESENT: atraumatic, normocephalic Eye exam: PRESENT: PERRLA, scleral icterus Ear exam: PRESENT: normal external ear exam Mouth exam: PRESENT: moist, tongue midline Neck exam: ABSENT: carotid bruit, JVD, lymphadenopathy, thyromegaly Respiratory exam: PRESENT: clear to auscultation hayley, crackles, decreased breath sounds, prolonged expiratory phas, symmetrical. ABSENT: rales, rhonchi, wheezes Cardiovascular exam: PRESENT: RRR. ABSENT: diastolic murmur, rubs, systolic murmur Pulses: PRESENT: normal dorsalis pedis pul GI/Abdominal exam: PRESENT: ascites - Massive ascites, distended, hypoactive bowel sounds. ABSENT: firm, guarding Rectal exam: PRESENT: deferred Extremities exam: PRESENT: full ROM, +2 edema, other - Widespread ecchymosis 4 extremities. ABSENT: calf tenderness, clubbing, pedal edema Neurological exam: PRESENT: altered, CN II-XII grossly intact Psychiatric exam: PRESENT: flat affect Skin exam: PRESENT: jaundice, mottled, petechiae. ABSENT: urticaria, vesicles, warm Results Laboratory Results: 10/28/17 20:48 Phosphorus 3.3 Magnesium 3.1 H Impressions: KUB X-Ray 10/28/17 21:26 IMPRESSION: Enteric tube. Assessment & Plan - Diagnosis (1) Hepatic failure, with coma Is this a current diagnosis for this admission?: Yes Plan: Hospice consulted (2) Encephalopathy Is this a current diagnosis for this admission?: Yes Plan: Replace NG tube, lactulose trial (3) Coagulopathy Is this a current diagnosis for this admission?: Yes Plan: Vitamin K subcu (4) Hepatocellular carcinoma Is this a current diagnosis for this admission?: Yes Plan: Hospice referral - Time Time Spent: 50 to 70 Minutes - Inpatient Certification Medical Necessity: Need Close Monitoring Due to Risk of Patient Decompensation
[2017-10-29] MEDS: IPRATROPIUM/ALBUTEROL 0.5-2.5 MG/3 ML AMPUL NEB SCH ×2 (08:16→20:25)
[2017-10-29] MEDS ORDERED: NORMAL SALINE 1000 ML 1,000 ML IV PRN (09:34)
[2017-10-29 09:58] LABS: HEMATOCRIT 41.4 % (37.9-51.0); HEMOGLOBIN 13.5 g/dL (13.5-17.0); MEAN CORPUSCULAR HEMOGLOBIN 30.1 pg (27.0-33.4); MEAN CORPUSCULAR HGB CONC 32.7 g/dL (32.0-36.0); WHITE BLOOD COUNT 17.2 10^3/uL (4.0-10.5)
[2017-10-29 10:07] LABS: MEAN CORPUSCULAR VOLUME 92 fl (80-97); PLATELET COUNT 81 10^3/uL (150-450)
[2017-10-29 10:25] LABS: ABSOLUTE LYMPHOCYTES# (MANUAL) 0.7 10^3/uL (0.5-4.7); ABSOLUTE MONOCYTES # (MANUAL) 0.3 10^3/uL (0.1-1.4); ABSOLUTE NEUTROPHILS# (MANUAL) 16.2 10^3/uL (1.7-8.2); BASOPHILS % (MANUAL) 0 % (0-2); EOSINOPHILS % (MANUAL) 0 % (0-6); LYMPHOCYTES % (MANUAL) 4 % (13-45); MONOCYTES % (MANUAL) 2 % (3-13); SEGMENTED NEUTROPHILS % (MAN) 94 % (42-78); TOTAL CELLS COUNTED 100
[2017-10-29 10:30] LABS: ANISOCYTOSIS 4+; OVALOCYTES SLIGHT; PLATELET COMMENT DECREASED; POIKILOCYTOSIS SLIGHT; POLYCHROMASIA SLIGHT; TARGET CELLS SLIGHT
[2017-10-29] MEDS: PREDNISONE 20 MG TABLET NG SCH (10:34)
[2017-10-29] MEDS: RIFAXIMIN 550 MG TABLET NG SCH ×2 (10:34→17:15)
[2017-10-29] MEDS: VANCOMYCIN HCL 1,000 MG in DEXTROSE 5%-WATER 250 ML IV SCH ×2 (10:35→22:58)
[2017-10-29] MEDS: SPIRONOLACTONE 25 MG TABLET NG SCH (10:35)
[2017-10-29] MEDS: FUROSEMIDE 20 MG TABLET NG SCH (10:35)
[2017-10-29 12:33] LABS: INTERNATIONAL RATION (INR) 1.93
[2017-10-29] MEDS ORDERED: OXYCODONE HCL IR 5 MG TABLET NG PRN (15:45)
[2017-10-29] MEDS: LACTULOSE SYRUP 20 GM/30 ML UDCUP PO SCH (17:15)
[2017-10-29] MEDS ORDERED: DEXTROSE 5%-1/2 NORMAL SALINE 1,000 ML IV PRN (18:30)
--- NOTE | 2017-10-29 18:37 | PDOC PROGRESS REPORT ---
Subjective Progress Note for:: 10/29/17 Subjective:: The patient is a 57-year-old male with a past medical history of end-stage liver failure, hepatitis C, hepatocellular carcinoma who was transferred here from a tertiary hospital on 10/29/17 following treatment of spontaneous bacterial peritonitis. The patient is seen on rounds with nursing and multiple family members present, including the patient's two sons and [id number] (who acts as his primary warp hand). The patient is found resting in bed on room air; he appears to be in mild discomfort with constant groaning and frequent arm and leg movements. The patient remains in soft restraints secondary to multiple IV and NG tube removal attempts; he has successfully removed his NG tube twice since his arrival at our facility. The patient is arousable, briefly opening his eyes and making eye contact, but does not answer questions or follow directions. Per family report and discharge summary, this is been the patient's baseline mental status for approximately 1 week. A long discussion was had regarding the patient's poor health and prognosis; the patient's sons and daughter in law agree on making the patient a DNR, but withhold on hospice or comfort care decisions while waiting for an opportunity to speak with the patient's third son who is not present at this time. Reason For Visit: ESRD, ENCEPHALOPATHY Physical Exam Vital Signs: Temp Pulse Resp BP Pulse Ox 98.1 F 79 17 115/61 99 10/29/17 16:00 10/29/17 16:00 10/29/17 16:00 10/29/17 16:00 10/29/17 16:00 Intake & Output 10/28/17 10/29/17 10/30/17 06:59 06:59 06:59 Intake Total 700 0 Output Total 250 75 Balance 450 -75 Weight 115.4 kg 115.4 kg General appearance: PRESENT: no acute distress, disheveled, well-developed, other - Anasarca Head exam: PRESENT: atraumatic, normocephalic Eye exam: PRESENT: conjunctiva pink, EOMI, PERRLA, scleral icterus Ear exam: PRESENT: normal external ear exam Mouth exam: PRESENT: dry mucosa, tongue midline Teeth exam: PRESENT: poor dentation Neck exam: ABSENT: carotid bruit, JVD, lymphadenopathy, thyromegaly Respiratory exam: PRESENT: crackles, rhonchi, symmetrical, unlabored. ABSENT: rales, wheezes Cardiovascular exam: PRESENT: RRR, +S1, +S2. ABSENT: diastolic murmur, rubs, systolic murmur Pulses: PRESENT: other - Trace pedal pulses Vascular exam: PRESENT: normal capillary refill GI/Abdominal exam: PRESENT: ascites, diminished bowel sounds, distended, firm, other - Biliary drain. ABSENT: guarding, mass, organolmegaly, rebound, tenderness Rectal exam: PRESENT: deferred Gentrourinary exam: PRESENT: scrotal swelling, indwelling catheter Extremities exam: PRESENT: +2 edema. ABSENT: calf tenderness, clubbing Musculoskeletal exam: ABSENT: ambulatory Neurological exam: PRESENT: other - Arousable, nonverbal/incoherent, withdraws to pain. ABSENT: motor sensory deficit Psychiatric exam: ABSENT: homicidal ideation, suicidal ideation Focused psych exam: PRESENT: restlessness Skin exam: PRESENT: jaundice, warm, other - Scattered ecchymosis. ABSENT: cyanosis, rash Results Laboratory Results: 10/29/17 09:29 10/29/17 05:59 10/28/17 10/29/17 10/29/17 20:48 05:59 05:59 WBC Cancelled RBC Cancelled Hgb Cancelled Hct Cancelled MCV Cancelled MCH Cancelled MCHC Cancelled RDW Cancelled Plt Count Cancelled Seg Neutrophils % Cancelled Lymphocytes % Cancelled Monocytes % Cancelled Eosinophils % Cancelled Basophils % Cancelled Absolute Neutrophils Cancelled Absolute Lymphocytes Cancelled Absolute Monocytes Cancelled Absolute Eosinophils Cancelled Absolute Basophils Cancelled Sodium 147.9 H Potassium 5.4 H Chloride 113 H Carbon Dioxide 30 Anion Gap 5 BUN 74 H Creatinine 1.15 Est GFR ( Amer) > 60 Est GFR (Non-Af Amer) > 60 Glucose 158 H Calcium 8.2 L Phosphorus 3.3 Magnesium 3.1 H Total Bilirubin 18.1 H AST 154 H ALT 147 H Alkaline Phosphatase 242 H Ammonia Total Protein 5.9 L Albumin 2.2 L 10/29/17 10/29/17 09:29 12:10 WBC 17.2 H RBC 4.50 Hgb 13.5 Hct 41.4 MCV 92 D MCH 30.1 MCHC 32.7 RDW 28.0 H Plt Count 81 L Seg Neutrophils % Not Reportable Lymphocytes % Not Reportable Monocytes % Not Reportable Eosinophils % Not Reportable Basophils % Not Reportable Absolute Neutrophils Not Reportable Absolute Lymphocytes Not Reportable Absolute Monocytes Not Reportable Absolute Eosinophils Not Reportable Absolute Basophils Not Reportable Sodium Potassium Chloride Carbon Dioxide Anion Gap BUN Creatinine Est GFR ( Amer) Est GFR (Non-Af Amer) Glucose Calcium Phosphorus Magnesium Total Bilirubin AST ALT Alkaline Phosphatase Ammonia 53.5 H Total Protein Albumin Assessment & Plan - Diagnosis (1) End stage liver disease Is this a current diagnosis for this admission?: Yes Plan: The patient is transferred from a tertiary facility to bring the patient closer to home. Per discharge summary, the patient's steam pressure chamber operator and oncologist have informed the patient's family that there is no further medical interventions to pursue. Meld score 26; 19.6% 3 month mortality risk. However, this does not account for his likely metastatic liver cancer. Total bilirubin 18.1. Ammonia 53 INR 1.93 Sodium 147.9, potassium 5.4 Long discussion was had with the patient's family today; they do agree to make the patient a DNR/DNI. We discussed palliative versus hospice versus comfort care measures. Indications are that the family is leaning towards home with hospice services but need to speak with a third son who was not present at the time of our discussion. Hospice has been consulted. Until hospice decision is confirmed, we are continuing with maintenance medications. The patient is placed on low-dose lactulose, spironolactone and Lasix. He is already on rifaximin, metoprolol, and prednisone. Gentle IV fluids. PEG tube is placed; will initiate tube feeds at 10 mL's per hour. Registered dietitian has been consulted for dietary recommendations. The patient is very clearly at the terminal stages of his disease process. The family was gently informed that I anticipated the patient would continue to progress towards end of life despite aggressive interventions. The family was receptive to this information. (2) Encephalopathy Is this a current diagnosis for this admission?: Yes Plan: Likely secondary to end-stage liver disease and elevated ammonia. NG tube is placed; have resumed lactulose. We will attempt to correct electrolyte derangements with IVF. We will provide for patient safety; fall precautions, aspiration precautions, seizure precautions. Unfortunately, the patient requires soft restraints secondary to multiple line removals. (3) Coagulopathy Is this a current diagnosis for this admission?: Yes Plan: Secondary to end-stage liver disease. Despite receiving subcutaneous vitamin K overnight, the patient's INR continue to trend up. Fall precautions. (4) Hepatocellular carcinoma Is this a current diagnosis for this admission?: Yes Plan: No further interventions advised by steam pressure chamber operator or oncologist. Hospice referral has been initiated. (5) Bacteremia Is this a current diagnosis for this admission?: Yes Plan: Blood cultures dated 10/18/17 were positive for strep pneumonia and MSSA. Urine culture positive for the same. We will continue the patient's establish antibiotic regiment: Zosyn and vancomycin. (6) DNR (do not resuscitate) Is this a current diagnosis for this admission?: Yes Plan: The patient's son, Julio Sanford Jr, is the patient's primary contact. He and his have been the primary caretakers. Both were present in addition to a second son today for conversation regarding CODE STATUS and goals of care. All 3 agreed to making the patient a DNR/DNI. Family seemed receptive toward hospice referral, however, they requested to speak with a third son prior to beginning transition towards comfort care. - Time Time Spent with patient: 35 or more minutes Medications reviewed and adjusted accordingly: Yes Anticipated discharge: Hospice
--- NOTE | 2017-10-29 18:51 | RADIOLOGY REPORT (SQ) ---
EXAM DESCRIPTION: KUB/ABDOMEN (SINGLE VIEW) COMPLETED DATE/TIME: 10/29/2017 6:17 pm REASON FOR STUDY: ng tube placement COMPARISON: 10/28/2017 NUMBER OF VIEWS: Three views TECHNIQUE: Supine radiographic image of the abdomen acquired. LIMITATIONS: None. FINDINGS: BOWEL GAS PATTERN: Normal bowel gas pattern. No dilated loops. SOFT TISSUES: No gross mass or suggestion of organomegaly. HARDWARE: None in the abdomen. BONES: No acute fracture. No worrisome bone lesions. OTHER: No other significant finding. IMPRESSION: NO RADIOGRAPHIC EVIDENCE FOR ACUTE ABDOMINAL DISEASE. NO ENTERIC TUBE IS VISUALIZED ON THE IMAGES PROVIDED. TECHNICAL DOCUMENTATION: JOB ID: [id number] [employer]- All Rights Reserved Reading location - IP/workstation name: [email or web address]
--- NOTE | 2017-10-29 18:53 | RADIOLOGY REPORT (SQ) ---
EXAM DESCRIPTION: KUB/ABDOMEN (SINGLE VIEW) COMPLETED DATE/TIME: 10/29/2017 6:37 pm REASON FOR STUDY: verify ng tube placement COMPARISON: None. NUMBER OF VIEWS: One view. TECHNIQUE: Supine radiographic image of the abdomen acquired. LIMITATIONS: None. FINDINGS: BOWEL GAS PATTERN: Normal bowel gas pattern. No dilated loops. SOFT TISSUES: No gross mass or suggestion of organomegaly. HARDWARE: Interval advancement/placement of an apparent enteric tube, which terminates subdiaphragmat ically. BONES: No acute fracture. No worrisome bone lesions. OTHER: No other significant finding. IMPRESSION: NO RADIOGRAPHIC EVIDENCE FOR ACUTE ABDOMINAL DISEASE. APPARENT ENTERIC TUBE TERMINATES SUBDIAPHRAGMATICALLY IN THE UPPER ABDOMINAL MIDLINE. TECHNICAL DOCUMENTATION: JOB ID: [id number] [employer]- All Rights Reserved Reading location - IP/workstation name: [email or web address]
[2017-10-29] MEDS: MORPHINE SULFATE 10 MG/ML INJ IV PRN (20:26)
[2017-10-30] MEDS: PIPERACILLIN SODIUM/TAZOBACTAM 3.375 GM in NORMAL SALINE 100 ML IV SCH ×4 (01:38→18:22)
[2017-10-30] MEDS: METOPROLOL TARTRATE 25 MG TABLET NG SCH ×4 (01:38→18:23)
[2017-10-30] MEDS: LACTULOSE SYRUP 20 GM/30 ML UDCUP PO SCH ×4 (01:38→18:28)
[2017-10-30] MEDS: OXYCODONE HCL IR 5 MG TABLET NG SCH ×6 (02:37→21:49)
[2017-10-30] MEDS: MORPHINE SULFATE 10 MG/ML INJ IV PRN (04:43)
[2017-10-30] MEDS: LANSOPRAZOLE 30 MG TAB.RAP.DR NG SCH (05:34)
[2017-10-30] MEDS: HEPARIN SOD (PORCINE) 5,000 UNIT/ML 1 ML SYRINGE SUBCUT SCH ×3 (05:35→21:52)
[2017-10-30 06:39] LABS: INTERNATIONAL RATION (INR) 1.99; PROTHROMBIN TIME 23.6 SEC (11.4-15.4)
[2017-10-30 06:55] LABS: ABSOLUTE LYMPHOCYTES (AUTO) 0.6 10^3/uL (0.5-4.7); ABSOLUTE MONOCYTES (AUTO) 0.6 10^3/uL (0.1-1.4); ABSOLUTE NEUT (AUTO) 9.7 10^3/uL (1.7-8.2); BASOPHILS % (AUTO) 0.2 % (0-2); EOSINOPHILS % (AUTO) 0.1 % (0-6); HEMATOCRIT 38.2 % (37.9-51.0); HEMOGLOBIN 12.5 g/dL (13.5-17.0); LYMPHOCYTES % (AUTO) 5.6 % (13-45); MEAN CORPUSCULAR HEMOGLOBIN 30.7 pg (27.0-33.4); MEAN CORPUSCULAR HGB CONC 32.7 g/dL (32.0-36.0); MEAN CORPUSCULAR VOLUME 94 fl (80-97); MONOCYTES % (AUTO) 5.3 % (3-13); RED BLOOD COUNT 4.07 10^6/uL (4.35-5.55); RED CELL DISTRIBUTION WIDTH 27.6 % (11.5-14.0); SEGMENTED NEUTROPHILS % (AUTO) 88.8 % (42-78); TOTAL CELLS COUNTED % (AUTO) 100 %; WHITE BLOOD COUNT 10.9 10^3/uL (4.0-10.5)
[2017-10-30 07:11] LABS: ALANINE AMINOTRANSFERASE 122 U/L (21-72); ALKALINE PHOSPHATASE 190 U/L (38-126); ANION GAP 7 (5-19); ASPARTATE AMINO TRANSFERASE 144 U/L (17-59); BILIRUBIN,DIRECT 14.6 mg/dL (0.0-0.4); BILIRUBIN,TOTAL 18.9 mg/dL (0.2-1.3); BLOOD UREA NITROGEN 82 mg/dL (7-20); CARBON DIOXIDE 27 mmol/L (22-30); CHLORIDE 114 mmol/L (98-107); GLUCOSE 100 mg/dL (75-110); POTASSIUM 5.4 mmol/L (3.6-5.0); SODIUM 147.6 mmol/L (137-145); TOTAL PROTEIN 5.6 g/dL (6.3-8.2)
[2017-10-30] MEDS: IPRATROPIUM/ALBUTEROL 0.5-2.5 MG/3 ML AMPUL NEB SCH ×2 (08:06→20:18)
[2017-10-30 08:19] LABS: PLATELET COUNT 61 10^3/uL (150-450)
[2017-10-30 08:24] LABS: ANISOCYTOSIS 3+; BURR CELLS 1+; OVALOCYTES 1+; PLATELET COMMENT DECREASED; POIKILOCYTOSIS 1+; TARGET CELLS SLIGHT
[2017-10-30] MEDS: HUM INSULIN NPH/REG INSULIN HM 100 UNIT/1 ML 3 ML SUBCUT SCH (08:55)
--- NOTE | 2017-10-30 09:51 | RADIOLOGY REPORT (SQ) ---
EXAM DESCRIPTION: CHEST SINGLE VIEW COMPLETED DATE/TIME: 10/30/2017 7:28 am REASON FOR STUDY: dyspnea COMPARISON: 10/18/2017 EXAM PARAMETERS: NUMBER OF VIEWS: One view. TECHNIQUE: Single frontal radiographic view of the chest acquired. RADIATION DOSE: NA LIMITATIONS: None. FINDINGS: LUNGS AND PLEURA: Extensive left midzone parenchymal opacity. Right lung is clear. MEDIASTINUM AND HILAR STRUCTURES: No masses. Contour normal. HEART AND VASCULAR STRUCTURES: Heart normal in size. Normal vasculature. BONES: No acute findings. HARDWARE: None in the chest. OTHER: No other significant finding. IMPRESSION: Interval development of extensive left midzone parenchymal opacity. TECHNICAL DOCUMENTATION: JOB ID: [id number] [employer]- All Rights Reserved Reading location - IP/workstation name: [email or web address]
[2017-10-30 10:50] LABS: VANCOMYCIN,TROUGH 23.3 ug/mL (5.0-20.0)
[2017-10-30] MEDS: PREDNISONE 20 MG TABLET NG SCH (11:10)
[2017-10-30] MEDS: FUROSEMIDE 20 MG TABLET NG SCH (11:11)
[2017-10-30] MEDS: SPIRONOLACTONE 25 MG TABLET NG SCH (11:11)
[2017-10-30] MEDS: VANCOMYCIN HCL 1,000 MG in DEXTROSE 5%-WATER 250 ML IV SCH (11:17)
[2017-10-30] MEDS: RIFAXIMIN 550 MG TABLET NG SCH ×2 (11:22→18:29)
[2017-10-30] MEDS ORDERED: OXYCODONE HCL IR 5 MG TABLET PO PRN (12:34)
[2017-10-30] MEDS ORDERED: OXYCODONE HCL IR 5 MG TABLET NG PRN (12:35)
[2017-10-30] MEDS ORDERED: LEVALBUTEROL HCL NEB 1.25 MG/3 ML AMPUL NEB PRN (16:16)
--- NOTE | 2017-10-30 16:24 | PDOC PROGRESS REPORT ---
Subjective Progress Note for:: 10/30/17 Subjective:: The patient is a 57-year-old male with a past medical history of end-stage liver failure, hepatitis C, hepatocellular carcinoma who was transferred here from a tertiary hospital on 10/29/17 following treatment of spontaneous bacterial peritonitis. The patient is seen on rounds; unfortunately, there are no family members present at this time. The patient is found resting in bed on room air. He is arousable and does attempt to answer questions, however answers inappropriately (patient stated that his name was Alexander when asked). He does not appear to be in any discomfort today; no longer crowding, facial grimacing, or with writhing movements. Discussed with nursing the patient's plan of care. Nursing reports increased edema to right upper extremity; restraint removed from that arm, will elevate the extremity and monitor closely for worsening edema or attempts to remove NG tube. The patient is a DNR/DNI; slightly worsening chemistry, LFTs, platelets and INR today. Disposition pending family decision with regard to hospice services. Reason For Visit: ESRD, ENCEPHALOPATHY Physical Exam Vital Signs: Temp Pulse Resp BP Pulse Ox 97.8 F 90 12 116/71 93 10/30/17 11:53 10/30/17 11:53 10/30/17 11:53 10/30/17 11:53 10/30/17 11:53 Intake & Output 10/29/17 10/30/17 10/31/17 06:59 06:59 06:59 Intake Total 700 1050 Output Total 250 925 Balance 450 125 Weight 115.4 kg 121 kg General appearance: PRESENT: no acute distress, disheveled, obese, well- developed, other - Anasarca Head exam: PRESENT: atraumatic, normocephalic Eye exam: PRESENT: EOMI, PERRLA, scleral icterus Ear exam: PRESENT: normal external ear exam Mouth exam: PRESENT: dry mucosa, tongue midline Neck exam: ABSENT: carotid bruit, JVD, lymphadenopathy, thyromegaly Respiratory exam: PRESENT: crackles, decreased breath sounds - Bibasilar, prolonged expiratory phas, rhonchi - Throughout, symmetrical, unlabored. ABSENT : rales, wheezes Cardiovascular exam: PRESENT: RRR, +S1, +S2, systolic murmur. ABSENT: diastolic murmur, rubs Pulses: PRESENT: other - Trace pedal pulses Vascular exam: PRESENT: normal capillary refill GI/Abdominal exam: PRESENT: ascites, diminished bowel sounds, distended, firm, other - Biliary drain. ABSENT: guarding, mass, organolmegaly, rebound, tenderness Rectal exam: PRESENT: deferred Gentrourinary exam: PRESENT: scrotal swelling, indwelling catheter Extremities exam: PRESENT: other - Limitted spontaneous movements noted to right upper extremity; patient does not follow commands. +3 pitting edema BLE, +2 edema RUE, +1 edema LUE. ABSENT: calf tenderness, clubbing, pedal edema Neurological exam: PRESENT: other - Arousable, answers questions inappropriately , does not follow directions Psychiatric exam: ABSENT: homicidal ideation, suicidal ideation Skin exam: PRESENT: dry, jaundice, warm, other - Scattered ecchymosis. ABSENT: cyanosis, rash Results Laboratory Results: 10/30/17 05:00 10/30/17 05:00 10/30/17 10/30/17 10/30/17 05:00 05:00 10:21 WBC 10.9 H RBC 4.07 L Hgb 12.5 L Hct 38.2 MCV 94 MCH 30.7 MCHC 32.7 RDW 27.6 H Plt Count 61 L Seg Neutrophils % 88.8 H Lymphocytes % 5.6 L Monocytes % 5.3 Eosinophils % 0.1 Basophils % 0.2 Absolute Neutrophils 9.7 H Absolute Lymphocytes 0.6 Absolute Monocytes 0.6 Absolute Eosinophils 0.0 Absolute Basophils 0.0 Sodium 147.6 H Potassium 5.4 H Chloride 114 H Carbon Dioxide 27 Anion Gap 7 BUN 82 H Creatinine 1.12 Est GFR ( Amer) > 60 Est GFR (Non-Af Amer) > 60 Glucose 100 Calcium 8.0 L Total Bilirubin 18.9 H AST 144 H ALT 122 H Alkaline Phosphatase 190 H Ammonia 24.6 Total Protein 5.6 L Albumin 2.0 L Impressions: KUB X-Ray 10/29/17 00:00 IMPRESSION: NO RADIOGRAPHIC EVIDENCE FOR ACUTE ABDOMINAL DISEASE. APPARENT ENTERIC TUBE TERMINATES SUBDIAPHRAGMATICALLY IN THE UPPER ABDOMINAL MIDLINE. Chest X-Ray 10/30/17 06:00 IMPRESSION: Interval development of extensive left midzone parenchymal opacity. Assessment & Plan - Diagnosis (1) End stage liver disease Is this a current diagnosis for this admission?: Yes Plan: The patient is transferred from a tertiary facility to bring the patient closer to home. Per discharge summary, the patient's landscape foreman and oncologist have informed the patient's family that there is no further medical interventions to pursue. Meld score 26; 19.6% 3 month mortality risk. However, this does not account for his likely metastatic liver cancer. Total bilirubin 18.9. Ammonia 53--> 24.6 INR 1.99 Sodium 147.6, potassium 5.4 Long discussion was had with the patient's family yesterday; they do agree to make the patient a DNR/DNI. We discussed palliative versus hospice versus comfort care measures. Indications are that the family is leaning towards home with hospice services but need to speak with a third son who was not present at the time of our discussion. Hospice has been consulted. No updates on plan/goals of care today. Until hospice decision is confirmed, we are continuing with maintenance medications. Continue lactulose, spironolactone and Lasix. Will increase spironolactone and Lasix slightly today. Continue rifaximin, metoprolol, and prednisone. Gentle IV fluids; D51/2 NS for sodium correction. PEG tube is placed; will initiate tube feeds at 10 mL's per hour. Registered dietitian has been consulted for dietary recommendations; recommended starting at 10 mL's per hour and advancing by 5 mL's every 8 hours to goal of 55. I have reservations with regard to the pacing of this advancement due to high risk for aspiration. Spoke with nursing today, will advance by 5 mL's q 12 hours to goal of 25. Will evaluate suitability for continued advancement at that time. The patient is very clearly at the terminal stages of his disease process. The family was gently informed that I anticipated the patient would continue to progress towards end of life despite aggressive interventions. The family was receptive to this information but has not yet indicated interest in hospice or comfort care measures. (2) Encephalopathy Is this a current diagnosis for this admission?: Yes Plan: Likely secondary to end-stage liver disease, elevated ammonia, opiate medications. Ammonia improved today. Head CT (10/18/2017) revealed limited area of decreased attenuation to left parietal region possibly suggesting an old or subacute CVA; cannot exclude malignancy in the same area. NG tube is placed; continue lactulose with goal of 2-3 loose bowel movements daily. Continue attempts to correct electrolyte derangements with IVF. We will provide for patient safety; fall precautions, aspiration precautions, seizure precautions. Unfortunately, the patient requires soft restraints secondary to multiple line removals. Gradually decreasing oxycodone intake. Discussed the previous CT results with family yesterday, they believe the patient may have had an additional CVA while admitted at tertiary facility. They have noted decreased movement to his right upper and lower extremities for approximately 1 week. They decline further imaging workup at this time. (3) Coagulopathy Is this a current diagnosis for this admission?: Yes Plan: Secondary to end-stage liver disease. Did receive subcutaneous vitamin K 1. INR continues to trend up. Fall precautions. Minimize invasive procedures. (4) Hepatocellular carcinoma Is this a current diagnosis for this admission?: Yes Plan: No further interventions advised by landscape foreman or oncologist. Discharge planning has been asked to assist the patient's family with transition to hospice services. (5) Bacteremia Is this a current diagnosis for this admission?: Yes Plan: Blood cultures dated 10/18/17 were positive for strep pneumonia and MSSA. Urine culture positive for the same. WBCs are trending down, patient is afebrile. We will continue the patient's establish antibiotic regiment: Zosyn and vancomycin. (6) Pneumonia Qualifiers: Pneumonia type: due to unspecified organism Laterality: left Is this a current diagnosis for this admission?: Yes Plan: Patient with increased adventitious lung sounds today; oxygen saturations of 93 % while on room air (high 90s yesterday). WBCs are trending down, patient is afebrile, heart rate stable. Chest x-ray today revealed left mid lung consolidation. Blood cultures from previous visit (10/18/2017) positive for strep pneumoniae and staph aureus both sensitive to vancomycin and Zosyn. We will continue IV vancomycin and Zosyn. Continue scheduled and as needed nebulizer treatments. (7) Edema of upper extremity Is this a current diagnosis for this admission?: Yes Plan: Increased edema to right upper extremity as compared to left upper extremity. Patient with anasarca and generalized edema throughout. The patient does have multiple IV lines refusing antibiotics and maintenance fluids to his right hand. The extremity was also restrained secondary to multiple line removals. Family reported yesterday that they have not seen the patient move his right upper extremity in nearly a week; believe that he may have had a CVA. Discussed with nursing, will remove restraint from RUE and elevate on pillows. Continue to monitor closely for signs of IV infiltration. Monitor for attempts to remove NG tube/razo. (8) DNR (do not resuscitate) Is this a current diagnosis for this admission?: Yes Plan: Family confirmed CODE STATUS yesterday; patient is to be a DNR/DNI. Family seemed receptive toward hospice referral, however, they requested to speak with a third son prior to beginning transition towards comfort care. No updates on goals of care today. - Time Time Spent with patient: 25-34 minutes Anticipated discharge: Hospice Within: Other - Pending family decision.
[2017-10-30] MEDS ORDERED: INSULIN GLARGINE,HUM.REC.ANLOG 1,000 UNIT/10 ML UNIT SUBCUT SCH (18:00)
--- NOTE | 2017-10-30 18:44 | RADIOLOGY REPORT (SQ) ---
EXAM DESCRIPTION: KUB/ABDOMEN (SINGLE VIEW) COMPLETED DATE/TIME: 10/30/2017 6:01 pm REASON FOR STUDY: ng tube placement COMPARISON: 10/29/2017 NUMBER OF VIEWS: One view. TECHNIQUE: Supine radiographic image of the abdomen acquired. LIMITATIONS: None. FINDINGS: Nasogastric catheter is present with side port below the GE junction, tip near the antral region of the stomach. OTHER: No other acute finding. IMPRESSION: Nasogastric catheter is present with side port below the GE junction, tip near the antra l region of the stomach. TECHNICAL DOCUMENTATION: JOB ID: [id number] [id number] 2010 [employer]- All Rights Reserved Reading location - IP/workstation name: [email or web address]
[2017-10-30] MEDS: VANCOMYCIN HCL 750 MG in DEXTROSE 5%-WATER 250 ML IV SCH (21:49)
[2017-10-31] MEDS: PIPERACILLIN SODIUM/TAZOBACTAM 3.375 GM in NORMAL SALINE 100 ML IV SCH ×4 (00:39→19:03)
[2017-10-31] MEDS: LACTULOSE SYRUP 20 GM/30 ML UDCUP PO SCH ×4 (00:39→19:00)
[2017-10-31] MEDS: METOPROLOL TARTRATE 25 MG TABLET NG SCH ×4 (00:39→19:00)
[2017-10-31] MEDS: OXYCODONE HCL IR 5 MG TABLET NG SCH ×6 (02:50→21:43)
[2017-10-31] MEDS: HEPARIN SOD (PORCINE) 5,000 UNIT/ML 1 ML SYRINGE SUBCUT SCH ×3 (05:39→21:50)
[2017-10-31] MEDS: LANSOPRAZOLE 30 MG TAB.RAP.DR NG SCH (06:00)
[2017-10-31 06:35] LABS: INTERNATIONAL RATION (INR) 1.91; PROTHROMBIN TIME 22.8 SEC (11.4-15.4)
[2017-10-31 06:40] LABS: HEMATOCRIT 40.2 % (37.9-51.0); HEMOGLOBIN 13.4 g/dL (13.5-17.0); MEAN CORPUSCULAR HEMOGLOBIN 31.1 pg (27.0-33.4); MEAN CORPUSCULAR HGB CONC 33.4 g/dL (32.0-36.0); MEAN CORPUSCULAR VOLUME 93 fl (80-97); RED BLOOD COUNT 4.32 10^6/uL (4.35-5.55); RED CELL DISTRIBUTION WIDTH 29.1 % (11.5-14.0); WHITE BLOOD COUNT 11.1 10^3/uL (4.0-10.5)
[2017-10-31 06:51] LABS: ALANINE AMINOTRANSFERASE 140 U/L (21-72); ALKALINE PHOSPHATASE 267 U/L (38-126); ANION GAP 13 (5-19); ASPARTATE AMINO TRANSFERASE 159 U/L (17-59); BILIRUBIN,DIRECT 13.7 mg/dL (0.0-0.4); BLOOD UREA NITROGEN 76 mg/dL (7-20); CALCIUM 7.7 mg/dL (8.4-10.2); CARBON DIOXIDE 21 mmol/L (22-30); CHLORIDE 113 mmol/L (98-107); GLUCOSE 248 mg/dL (75-110); POTASSIUM 4.6 mmol/L (3.6-5.0); TOTAL PROTEIN 5.7 g/dL (6.3-8.2)
[2017-10-31 07:01] LABS: PLATELET COUNT 63 10^3/uL (150-450)
[2017-10-31] MEDS: INSULIN LISPRO 100 UNIT/ML 3 ML VIAL SUBCUT PRN ×3 (07:03→18:59)
[2017-10-31 08:00] LABS: BILIRUBIN,TOTAL 16.1 mg/dL (0.2-1.3)
[2017-10-31] MEDS: IPRATROPIUM/ALBUTEROL 0.5-2.5 MG/3 ML AMPUL NEB SCH ×2 (08:50→19:54)
[2017-10-31] MEDS ORDERED: FUROSEMIDE 20 MG TABLET NG SCH ×2 (10:00→11:00)
[2017-10-31] MEDS: VANCOMYCIN HCL 750 MG in DEXTROSE 5%-WATER 250 ML IV SCH ×2 (10:49→21:44)
[2017-10-31] MEDS: RIFAXIMIN 550 MG TABLET NG SCH ×2 (11:57→19:02)
[2017-10-31] MEDS: SPIRONOLACTONE 25 MG TABLET NG SCH (11:57)
[2017-10-31] MEDS: PREDNISONE 20 MG TABLET NG SCH (11:57)
[2017-10-31] MEDS ORDERED: ACETAMINOPHEN SOLN 325 MG/10.15 ML UDCUP NG PRN (12:51)
--- NOTE | 2017-10-31 17:16 | PDOC PROGRESS REPORT ---
Subjective Progress Note for:: 10/31/17 Subjective:: The patient is a 57-year-old male with a past medical history of end-stage liver failure, hepatitis C, hepatocellular carcinoma who was transferred here from a tertiary hospital on 10/29/17 following treatment of spontaneous bacterial peritonitis. The patient is seen on rounds; unfortunately, there are no family members present at this time. The patient is found resting in bed on room air. He is arousable and does attempt to answer questions, however answers inappropriately (he initially responds good morning but then answers all other questions with "no"). He does not appear to be in any discomfort today; no longer groaning, facial grimacing, or restless. Discussed with nursing the patient's plan of care. The patient has developed bibasilar crackles and rhonchi; oxygen saturations 91% on room air. No cough noted, no fever. I did receive a phone call from discharge planning; they had spoke with the patient's son today. Per their conversation, the patient's family is requesting "aggressive interventions," however, does remain a DNR. Discharge planning presented SNF versus discharge to home today with or without hospice follow-up. Family is considering options. Reason For Visit: ESRD, ENCEPHALOPATHY Physical Exam Vital Signs: Temp Pulse Resp BP Pulse Ox 97.7 F 89 16 124/71 90 L 10/31/17 07:50 10/31/17 09:26 10/31/17 08:49 10/31/17 07:50 10/31/17 09:26 Intake & Output 10/30/17 10/31/17 11/01/17 06:59 06:59 06:59 Intake Total 1050 1090 0 Output Total 925 1150 Balance 125 -60 0 Weight 121 kg 121 kg General appearance: PRESENT: no acute distress, obese, well-developed, other - Anasarca. ABSENT: well-nourished Head exam: PRESENT: atraumatic, normocephalic Eye exam: PRESENT: conjunctiva pink, EOMI, PERRLA, scleral icterus Ear exam: PRESENT: normal external ear exam Mouth exam: PRESENT: dry mucosa, tongue midline Neck exam: ABSENT: carotid bruit, JVD, lymphadenopathy, thyromegaly Respiratory exam: PRESENT: crackles, rhonchi, symmetrical, unlabored. ABSENT: rales, wheezes Cardiovascular exam: PRESENT: RRR, +S1, +S2. ABSENT: diastolic murmur, rubs, systolic murmur Pulses: PRESENT: other - Trace pedal pulses Vascular exam: PRESENT: normal capillary refill GI/Abdominal exam: PRESENT: ascites, diminished bowel sounds, distended, firm, other - Biliary drain right upper quadrant. ABSENT: guarding, mass, organolmegaly, rebound, tenderness Rectal exam: PRESENT: deferred Gentrourinary exam: PRESENT: indwelling catheter Extremities exam: PRESENT: other - Spontaneous movements to left extremities; minimal movement to right. Patient remains in soft restraints secondary to multiple line removals.. ABSENT: calf tenderness, clubbing, pedal edema Neurological exam: PRESENT: other - Arousable; incoherent speech.. ABSENT: oriented to person, oriented to place, oriented to time, oriented to situation Psychiatric exam: PRESENT: appropriate affect, normal mood. ABSENT: homicidal ideation, suicidal ideation Skin exam: PRESENT: dry, intact, jaundice - Worsened, warm, other - Scattered ecchymosis. ABSENT: cyanosis, rash Results Laboratory Results: 10/31/17 05:54 10/31/17 05:54 10/31/17 10/31/17 05:54 05:54 WBC 11.1 H RBC 4.32 L Hgb 13.4 L Hct 40.2 MCV 93 MCH 31.1 MCHC 33.4 RDW 29.1 H Plt Count 63 L Sodium 147.0 H Potassium 4.6 Chloride 113 H Carbon Dioxide 21 L Anion Gap 13 BUN 76 H Creatinine 0.93 Est GFR ( Amer) > 60 Est GFR (Non-Af Amer) > 60 Glucose 248 H Calcium 7.7 L Total Bilirubin 16.1 H AST 159 H ALT 140 H Alkaline Phosphatase 267 H Total Protein 5.7 L Albumin 2.0 L Impressions: KUB X-Ray 10/30/17 00:00 IMPRESSION: Nasogastric catheter is present with side port below the GE junction, tip near the antral region of the stomach. Chest X-Ray 10/30/17 06:00 IMPRESSION: Interval development of extensive left midzone parenchymal opacity. Assessment & Plan - Diagnosis (1) End stage liver disease Is this a current diagnosis for this admission?: Yes Plan: The patient is transferred from a tertiary facility to bring the patient closer to home. Per discharge summary, the patient's rn embedded and oncologist have informed the patient's family that there is no further medical interventions to pursue. Meld score 24; 19.6% 3 month mortality risk. However, this does not account for his likely metastatic liver cancer. Ammonia 53--> 24.6 Until disposition decision is confirmed, we are continuing with maintenance medications. Continue lactulose, spironolactone and Lasix. Currently on spironolactone 100 mg daily and Lasix 40 mg daily via NG. Continue rifaximin, metoprolol, and prednisone. IV fluids are discontinued secondary to adventitious lung sounds. NG tube is placed (correction; pt does NOT have PEG); continue tube feeds. Unfortunately, the patient has removed for previous NG tube. He is currently on his fifth NG tube. If he manages to remove his tube, will discuss with family strong recommendation against replacing. Unlikely that surgery would be agreeable to PEG. Registered dietitian has been consulted for dietary recommendations; recommended starting at 10 mL's per hour and advancing by 5 mL's every 8 hours to goal of 55. I have reservations with regard to the pacing of this advancement due to high risk for aspiration. Spoke with nursing, will advance by 5 mL's q 12 hours to goal of 25. Will evaluate suitability for continued advancement at that time. The patient is very clearly at the terminal stages of his disease process. The family was gently informed that I anticipated the patient would continue to progress towards end of life despite aggressive interventions. However, the family is continuing to request aggressive interventions. Appreciate discharge planning assistance with determining disposition. (2) Encephalopathy Is this a current diagnosis for this admission?: Yes Plan: Unchanged; patient remains disoriented 4. Secondary to end-stage liver disease , elevated ammonia, opiate medications. Ammonia improved following resumption of lactulose. Head CT (10/18/2017) revealed limited area of decreased attenuation to left parietal region possibly suggesting an old or subacute CVA; cannot exclude malignancy in the same area. NG tube is placed; continue lactulose with goal of 2-3 loose bowel movements daily. We will provide for patient safety; fall precautions, aspiration precautions, seizure precautions. Unfortunately, the patient requires soft restraints secondary to multiple line removals. Continue lower oxycodone dosing. Discussed the previous CT results with family, they believe the patient may have had an additional CVA while admitted at tertiary facility. They have noted decreased movement to his right upper and lower extremities for approximately 1 week. They decline further imaging workup at this time. (3) Coagulopathy Is this a current diagnosis for this admission?: Yes Plan: Secondary to end-stage liver disease. Did receive subcutaneous vitamin K 1. INR elevated to 1.91. Fall precautions. Minimize invasive procedures. (4) Hepatocellular carcinoma Is this a current diagnosis for this admission?: Yes Plan: No further interventions advised by rn embedded or oncologist. Discharge planning has been asked to assist the patient's family with transition to hospice services. (5) Bacteremia Is this a current diagnosis for this admission?: Yes Plan: Blood cultures dated 10/18/17 were positive for strep pneumonia and MSSA. Urine culture positive for the same. Repeat blood cultures are pending. WBCs are trending down, patient is afebrile. We will continue the patient's establish antibiotic regiment: Zosyn and vancomycin. As the patient's family is indicating that they would like to continue IV antibiotics, medications, and interventions with goal of prolonging life; have obtained a repeat set of blood cultures to determine whether or not bacteremia has cleared and identify length of antibiotic therapy. (6) Pneumonia Qualifiers: Pneumonia type: due to unspecified organism Laterality: left Is this a current diagnosis for this admission?: Yes Plan: Patient with increased adventitious lung sounds today; bibasilar crackles, coarse rhonchi, oxygen saturations of 91% while on room air. WBCs fluctuating ( currently 11.1), patient is afebrile, heart rate stable. Chest x-ray today revealed left mid lung consolidation. Blood cultures from previous visit (10/18/2017) positive for strep pneumoniae and staph aureus both sensitive to vancomycin and Zosyn. We will continue IV vancomycin and Zosyn. Continue scheduled and as needed nebulizer treatments. S complex upplemental oxygen to maintain oxygen saturations greater than 88%. (7) Edema of upper extremity Is this a current diagnosis for this admission?: Yes Plan: Improved with elevation today. Increased edema to right upper extremity as compared to left upper extremity. Patient with anasarca and generalized edema throughout. The patient does have multiple IV lines refusing antibiotics and maintenance fluids to his right hand. The extremity was also restrained secondary to multiple line removals. Family reported yesterday that they have not seen the patient move his right upper extremity in nearly a week; believe that he may have had a CVA. Discussed with nursing, will remove restraint from RUE and elevate on pillows. Continue to monitor closely for signs of IV infiltration. Monitor for attempts to remove NG tube/razo. (8) DNR (do not resuscitate) Is this a current diagnosis for this admission?: Yes Plan: Family confirmed CODE STATUS yesterday; patient is to be a DNR/DNI. Family seemed receptive toward hospice referral, however, they requested to speak with a third son prior to beginning transition towards comfort care. No updates on goals of care today. - Time Time Spent with patient: 25-34 minutes Medications reviewed and adjusted accordingly: Yes
[2017-10-31] MEDS: INSULIN GLARGINE,HUM.REC.ANLOG 1,000 UNIT/10 ML UNIT SUBCUT SCH (18:51)
[2017-11-01] MEDS: METOPROLOL TARTRATE 25 MG TABLET NG SCH ×4 (00:51→17:20)
[2017-11-01] MEDS: PIPERACILLIN SODIUM/TAZOBACTAM 3.375 GM in NORMAL SALINE 100 ML IV SCH ×4 (00:51→17:20)
[2017-11-01] MEDS: LACTULOSE SYRUP 20 GM/30 ML UDCUP PO SCH ×3 (00:51→11:49)
[2017-11-01] MEDS: INSULIN LISPRO 100 UNIT/ML 3 ML VIAL SUBCUT PRN ×4 (01:11→17:19)
[2017-11-01] MEDS: OXYCODONE HCL IR 5 MG TABLET NG SCH ×4 (02:52→13:39)
[2017-11-01] MEDS: HEPARIN SOD (PORCINE) 5,000 UNIT/ML 1 ML SYRINGE SUBCUT SCH ×2 (05:43→13:39)
[2017-11-01] MEDS: LANSOPRAZOLE 30 MG TAB.RAP.DR NG SCH (05:57)
[2017-11-01 06:55] LABS: HEMATOCRIT 42.8 % (37.9-51.0); MEAN CORPUSCULAR HEMOGLOBIN 30.9 pg (27.0-33.4); MEAN CORPUSCULAR HGB CONC 32.7 g/dL (32.0-36.0); MEAN CORPUSCULAR VOLUME 94 fl (80-97); RED BLOOD COUNT 4.54 10^6/uL (4.35-5.55); RED CELL DISTRIBUTION WIDTH 29.6 % (11.5-14.0); WHITE BLOOD COUNT 15.1 10^3/uL (4.0-10.5)
[2017-11-01 07:16] LABS: INTERNATIONAL RATION (INR) 2.06; PROTHROMBIN TIME 24.2 SEC (11.4-15.4)
[2017-11-01 07:25] LABS: ALANINE AMINOTRANSFERASE 149 U/L (21-72); ALBUMIN 2.1 g/dL (3.5-5.0); ALKALINE PHOSPHATASE 288 U/L (38-126); ANION GAP 10 (5-19); ASPARTATE AMINO TRANSFERASE 170 U/L (17-59); BILIRUBIN,DIRECT 13.3 mg/dL (0.0-0.4); BILIRUBIN,TOTAL 16.7 mg/dL (0.2-1.3); BLOOD UREA NITROGEN 82 mg/dL (7-20); CALCIUM 8.2 mg/dL (8.4-10.2); CARBON DIOXIDE 23 mmol/L (22-30); CHLORIDE 114 mmol/L (98-107); GLUCOSE 259 mg/dL (75-110); POTASSIUM 4.4 mmol/L (3.6-5.0); SODIUM 147.1 mmol/L (137-145); TOTAL PROTEIN 5.8 g/dL (6.3-8.2)
[2017-11-01 07:44] LABS: PLATELET COUNT 86 10^3/uL (150-450)
[2017-11-01] MEDS: IPRATROPIUM/ALBUTEROL 0.5-2.5 MG/3 ML AMPUL NEB SCH ×2 (08:00→20:00)
[2017-11-01] MEDS: VANCOMYCIN HCL 750 MG in DEXTROSE 5%-WATER 250 ML IV SCH (09:15)
[2017-11-01] MEDS: SPIRONOLACTONE 25 MG TABLET NG SCH (09:17)
[2017-11-01] MEDS: RIFAXIMIN 550 MG TABLET NG SCH ×2 (09:17→17:20)
[2017-11-01] MEDS: PREDNISONE 20 MG TABLET NG SCH (09:18)
[2017-11-01] MEDS ORDERED: FUROSEMIDE 40 MG TABLET NG SCH (11:00)
[2017-11-01 11:09] LABS: VANCOMYCIN,TROUGH 19.5 ug/mL (5.0-20.0)
[2017-11-01 12:58] VITALS: BP 132/76
[2017-11-01] MEDS ORDERED: FUROSEMIDE INJ/PF 20 MG/2 ML SDV IV ONE (13:29)
[2017-11-01] MEDS ORDERED: OXYCODONE HCL IR 5 MG TABLET NG PRN (14:00)
[2017-11-01] MEDS: INSULIN GLARGINE,HUM.REC.ANLOG 1,000 UNIT/10 ML UNIT SUBCUT SCH (17:20)
[2017-11-01] MEDS ORDERED: LACTULOSE SYRUP 20 GM/30 ML UDCUP NG SCH (18:00)
[2017-11-01] MEDS ORDERED: OXYCODONE HCL IR 5 MG TABLET NG SCH (18:00)
--- NOTE | 2017-11-01 19:44 | PDOC PROGRESS REPORT ---
Subjective Progress Note for:: 11/01/17 Subjective:: The patient is a 57-year-old male with a past medical history of end-stage liver failure, hepatitis C, hepatocellular carcinoma who was transferred here from a tertiary hospital on 10/29/17 following treatment of spontaneous bacterial peritonitis. The patient is seen on rounds; with his sister, [id number] (primary ict trainer) and other family present. His son/POA, Julio Brody, is not present at this time. The patient is found resting in bed on room air. He is arousable, restless and groaning. His speech is garbled and difficult to understand, however seems that he was requesting water. However, he would not follow directions or answer questions. Patient's [id number] has no new questions; she reports that she understands his condition/prognosis and is accepting of hospice recommendations but that the patient's sons are not yet ready. Nursing has no new concerns. Late this evening, nursing notified the Nocturist that the family was requesting comfort measures. Reason For Visit: ESRD, ENCEPHALOPATHY Physical Exam Vital Signs: Temp Pulse Resp BP Pulse Ox 98.5 F 95 18 132/76 H 89 L 11/01/17 13:00 11/01/17 14:00 11/01/17 13:00 11/01/17 13:00 11/01/17 13:00 Intake & Output 10/31/17 11/01/17 11/02/17 06:59 06:59 06:59 Intake Total 1090 1350 450 Output Total 1150 600 Balance -60 750 450 Weight 121 kg General appearance: PRESENT: disheveled, mild distress, obese, well-developed, other - Anasarca Head exam: PRESENT: atraumatic, normocephalic Eye exam: PRESENT: conjunctiva pink, EOMI, PERRLA, scleral icterus Ear exam: PRESENT: normal external ear exam Mouth exam: PRESENT: dry mucosa, tongue midline Teeth exam: PRESENT: poor dentation Neck exam: ABSENT: carotid bruit, JVD, lymphadenopathy, thyromegaly Respiratory exam: PRESENT: crackles, decreased breath sounds - Bibasilar, prolonged expiratory phas, rhonchi - Throughout, tachypnea. ABSENT: rales, wheezes Cardiovascular exam: PRESENT: RRR. ABSENT: diastolic murmur, rubs, systolic murmur Pulses: PRESENT: normal dorsalis pedis pul Vascular exam: PRESENT: normal capillary refill GI/Abdominal exam: PRESENT: ascites, diminished bowel sounds, distended, firm, other - Biliary drain. ABSENT: guarding, mass, organolmegaly, rebound, tenderness Rectal exam: PRESENT: deferred Gentrourinary exam: PRESENT: scrotal swelling, indwelling catheter Extremities exam: PRESENT: other - Limited range of motion right extremities; + 3 pitting edema bilateral lower extremities, anasarca. ABSENT: calf tenderness , clubbing, pedal edema Neurological exam: PRESENT: alert, other - Incoherent/garbled speech; does not respond to commands or questions. ABSENT: awake, oriented to person, oriented to place, oriented to time, oriented to situation, motor sensory deficit Focused psych exam: PRESENT: restlessness Skin exam: PRESENT: dry, intact, jaundice, warm, other - Ecchymosis. ABSENT: cyanosis, rash Results Laboratory Results: 11/01/17 06:07 11/01/17 10:05 11/01/17 11/01/17 11/01/17 06:07 06:07 10:05 WBC 15.1 H RBC 4.54 Hgb 14.0 Hct 42.8 MCV 94 MCH 30.9 MCHC 32.7 RDW 29.6 H Plt Count 86 L Sodium 147.1 H Potassium 4.4 Chloride 114 H Carbon Dioxide 23 Anion Gap 10 BUN 82 H Creatinine 1.26 H 1.29 H Est GFR ( Amer) > 60 > 60 Est GFR (Non-Af Amer) 59 L 58 L Glucose 259 H Calcium 8.2 L Total Bilirubin 16.7 H AST 170 H ALT 149 H Alkaline Phosphatase 288 H Total Protein 5.8 L Albumin 2.1 L Impressions: KUB X-Ray 10/30/17 00:00 IMPRESSION: Nasogastric catheter is present with side port below the GE junction, tip near the antral region of the stomach. Chest X-Ray 10/30/17 06:00 IMPRESSION: Interval development of extensive left midzone parenchymal opacity. Assessment & Plan - Diagnosis (1) End stage liver disease Is this a current diagnosis for this admission?: Yes Plan: The patient is transferred from a tertiary facility to bring the patient closer to home. Per discharge summary, the patient's railroad passenger agent and oncologist have informed the patient's family that there is no further medical interventions to pursue. Meld score 27 Received notification this evening from nursing that the family has requested comfort care measures. The nocturnal has provided orders for IV fentanyl as needed. Will add sublingual atropine drops as needed for oral secretions and Ativan 2 mg IV every 4 hours as needed for agitation or seizure. All other medications, IV fluids, tube feeds are discontinued. (2) Encephalopathy Is this a current diagnosis for this admission?: Yes Plan: Unchanged; patient remains disoriented 4. Secondary to end-stage liver disease , elevated ammonia, opiate medications. Ammonia improved following resumption of lactulose. Head CT (10/18/2017) revealed limited area of decreased attenuation to left parietal region possibly suggesting an old or subacute CVA; cannot exclude malignancy in the same area. Now on comfort care measures. Plan as above. (3) Coagulopathy Is this a current diagnosis for this admission?: Yes Plan: Secondary to end-stage liver disease. Did receive subcutaneous vitamin K 1. INR elevated to 2.06. Remaining plan as above.Fall precautions. (4) Hepatocellular carcinoma Is this a current diagnosis for this admission?: Yes Plan: No further interventions advised by railroad passenger agent or oncologist. Discharge planning has been asked to assist the patient's family with transition to hospice services. Now on comfort care measures. Plan as above. (5) Bacteremia Is this a current diagnosis for this admission?: Yes Plan: Blood cultures dated 10/18/17 were positive for strep pneumonia and MSSA. Urine culture positive for the same. Repeat blood cultures have no growth at 24 hours. Now on comfort care measures. Plan as above. (6) Pneumonia Qualifiers: Pneumonia type: due to unspecified organism Laterality: left Is this a current diagnosis for this admission?: Yes Plan: Patient with increased adventitious lung sounds today; bibasilar crackles, coarse rhonchi, oxygen saturations of 91% while on room air. WBCs fluctuating ( currently 11.1), patient is afebrile, heart rate stable. Chest x-ray today revealed left mid lung consolidation. Blood cultures from previous visit (10/18/2017) positive for strep pneumoniae and staph aureus both sensitive to vancomycin and Zosyn. Now on comfort care measures. Plan as above. (7) Edema of upper extremity Is this a current diagnosis for this admission?: Yes Plan: Improved with elevation. (8) DNR (do not resuscitate) Is this a current diagnosis for this admission?: Yes Plan: Now on comfort care measures. Plan as above. - Time Time Spent with patient: 35 or more minutes Medications reviewed and adjusted accordingly: Yes Anticipated discharge: Hospice
[2017-11-01] MEDS ORDERED: FENTANYL CITRATE INJ/PF 100 MCG/2 ML AMPUL ONE (19:56)
[2017-11-01] MEDS ORDERED: FENTANYL CITRATE INJ/PF 100 MCG/2 ML AMPUL IV PRN (20:03)
[2017-11-01] MEDS ORDERED: LORAZEPAM INJ 2 MG/1 ML VIAL IV PRN (20:04)
[2017-11-01] MEDS: ATROPINE SULFATE 1% OPH SOLN 5 ML BOTTLE SL PRN ×2 (20:51→22:37)
--- NOTE | 2017-11-02 23:53 | Death Summary ---
Summary Date : 11/02/17 Time of :: 06:25 Autopsy: No Resuscitation Status: Comfort Measures Only - Final Diagnosis (1) End stage liver disease Is this a current diagnosis for this admission?: Yes (2) Encephalopathy Is this a current diagnosis for this admission?: Yes (3) Coagulopathy Is this a current diagnosis for this admission?: Yes (4) Hepatocellular carcinoma Is this a current diagnosis for this admission?: Yes (5) Bacteremia Is this a current diagnosis for this admission?: Yes (6) Pneumonia Is this a current diagnosis for this admission?: Yes (7) Edema of upper extremity Is this a current diagnosis for this admission?: Yes (8) DNR (do not resuscitate) Is this a current diagnosis for this admission?: Yes Hospital Course:: Per H&P by Dr. Hanks: MIRTA AUGUST SR is a 57 year old male with history of end-stage liver failure, hepatitis C, hepatocellular carcinoma. Accepted in transfer from [facility] following treatment of spontaneous bacterial peritonitis. Patient appears gravely ill appearing, unresponsive, apneic with bright jaundice and large areas of ecchymosis of all extremities and displaced NG tube. Course: Initially the patient's family indicated they wished to pursue continued medical interventions. Therefore, he was started on gentle IV maintenance fluids. IV Vancomycin and Zosyn were continued for the treatment of MSSA and Strep pneumoniae identified in blood cultures at outside hospital. He was placed on low-dose lactulose, spironolactone and Lasix. His rifaximin, metoprolol, and prednisone were continued. An NG tube was placed and tube feeds were initiated at a rate of 10 ml/hr and advanced slowly to 1/2 the goal recommended by automotive service advisor secondary to high risk for aspiration. Over the course of the following three days, the patient's lab work showed scant improvement. He continued to have clear clinical decline and developed pulmonary edema. His IV fluids were discontinued and additional furosemide was provided via IV with slight relief of symptoms. The patient remained was arousable, but disorientated x4, with incoherent speech throughout his admission. On the evening of 11/01/17, the family notified nursing that they wished to transition to comfort care measures only. The patient was ordered IV Fentanyl, IV Ativan, and Atropine SL drops as needed for symptom management and all other medications, IV fluids, and tube feedings were discontinued. The patient expectantly the following morning at 06:25.
== END 2017-11-02 07:55 | DRG 682 ==
LOC: 4S 19:43
PROVIDERS: ADMIT Internal Medicine; ATTEND Internal Medicine
PROC: 3E0F73Z Introduction of Anti-inflammatory into Respiratory Tract, Via Natural or Artificial Opening (ICD-10-PCS; principal; 2017-10-29)
PROC: 0DH67UZ Insertion of Feeding Device into Stomach, Via Natural or Artificial Opening (ICD-10-PCS; 2017-10-29)
DX: I12.0 Hypertensive chronic kidney disease with stage 5 chronic kidney disease or end stage renal disease (principal); N18.6 End stage renal disease; G93.40 Encephalopathy, unspecified; J18.9 Pneumonia, unspecified organism; K72.91 Hepatic failure, unspecified with coma; C22.0 Liver cell carcinoma; R78.81 Bacteremia; Z66 Do not resuscitate; B19.20 Unspecified viral hepatitis C without hepatic coma; B95.61 Methicillin susceptible Staphylococcus aureus infection as the cause of diseases classified elsewhere; E11.22 Type 2 diabetes mellitus with diabetic chronic kidney disease; Z78.1 Physical restraint status; Z79.4 Long term (current) use of insulin; Z79.52 Long term (current) use of systemic steroids; Z83.3 Family history of diabetes mellitus; Z82.49 Family history of ischemic heart disease and other diseases of the circulatory system
CPT/HCPCS: 36415; 71045; 74018; 80053; 80202; 80307; 82140; 82565; 82962; 83735; 84100; 85025; 85027; 85610; 87040; 94640; A9270-GY; J1815; J1940; J2060; J2270; J2543; J3010; J3370; J3480; J7030; J7060; J7512; J7620